=== PATIENT | male | born 1955 | race Caucasian/White ===

== ENCOUNTER → 2023-08-07 07:01 | Outpatient (REF) | payer MEDICARE, OTHER, SELFPAY ==
[2023-08-07 08:01] LABS: % Basophils 1.3 % (0-2); % Eosinophils 2.8 % (0-6); % Immature Granulocytes 0.3 % (0-0.5); % Lymphocytes 21.6 % (20.5-51.1); % Monocytes 11.6 % (1.7-9.3); % Neutrophils 62.4 % (42.2-75.2); Absolute Basophils 0.1 10^3/uL (0-0.2); Absolute Eosinophils 0.1 10^3/uL (0-0.7); Absolute Lymphocytes 0.8 10^3/uL (1.2-3.4); Absolute Monocytes 0.5 10^3/uL (0.1-0.6); Absolute Neutrophils 2.4 10^3/uL (1.4-6.5); Hematocrit 36.6 % (39.0-52.0); Hemoglobin 13.1 g/dL (13.0-18.0); Mean Corp Hgb Conc. 35.8 g/dL (33.0-37.0); Mean Corpuscular Hgb 35.3 pg (27.0-31.0); Mean Corpuscular Volume 98.7 fL (80.0-94.0); Mean Platelet Volume 9.3 fL (7.4-10.4); Nucleated Red Blood Cells % 0 % (-); Platelet Count 163 10^3/uL (130-400); Red Blood Cell Count 3.71 10^6/uL (4.70-6.10); Red Cell Dist. Width 13.5 % (11.5-14.5); White Blood Cell Count 3.9 10^3/uL (4.8-10.8)
[2023-08-07 08:29] LABS: ALT (SGPT) 34 U/L (0-50); AST (SGOT) 32 U/L (17-59); Albumin 3.9 g/dl (3.5-5.0); Alkaline Phosphatase 95 U/L (38-126); Blood Urea Nitrogen 25 mg/dl (9-20); Calcium 9.3 mg/dl (8.4-10.2); Carbon Dioxide 29 mmol/L (22-30); Chloride 101 mmol/L (98-107); Glucose 91 mg/dl (70-99); Potassium 3.9 mmol/L (3.5-5.1); Sodium 139 mmol/L (135-145); Total Protein 6.8 g/dl (6.3-8.2); eGFR > 60.00
[2023-08-08 21:30] LABS: Beta-2-Microglobulin 2.4 mg/L (<=3.0)
[2023-08-11 01:45] LABS: Albumin 4.29 g/dL (3.75-5.01); Alpha 1 Globulin 0.27 g/dL (0.19-0.46); Alpha 2 Globulin 0.49 g/dL (0.48-1.05); Free Kappa Light Chains,Quant 14.98 mg/L (3.30-19.40); Free Lambda Light Chains,Quant 18.15 mg/L (5.71-26.30); IgA 66 mg/dL (68-408); IgG 926 mg/dL (768-1632); IgM 41 mg/dL (35-263); Immunofixation Electrophoresis IFE Done; Kappa/Lambda Fr Light Ratio 0.83 (0.26-1.65); Monoclonal Protein 0.48 g/dL (<=0.00); Total Protein-Electrophoresis 6.5 g/dL (6.3-8.2)
== END ==
LOC: REG 07:01
PROVIDERS: ATTENDING PHYSICIAN Internal Medicine Hematology & Oncology; FAMILY PHYSICIAN Internal Medicine
DX: C79.51 Secondary malignant neoplasm of bone (principal); C90.00 Multiple myeloma not having achieved remission; Q78.2 Osteopetrosis
CPT/HCPCS: 36415; 80053; 82232; 82784; 83521; 84155; 84165; 85025; 86334

== ENCOUNTER → 2023-09-08 06:34 | Outpatient (REF) | payer MEDICARE, OTHER, SELFPAY ==
[2023-09-08 07:11] LABS: % Eosinophils 7.8 % (0-6); % Lymphocytes 29.2 % (20.5-51.1); % Monocytes 11.5 % (1.7-9.3); % Neutrophils 49.5 % (42.2-75.2); Absolute Basophils 0.1 10^3/uL (0-0.2); Absolute Eosinophils 0.2 10^3/uL (0-0.7); Absolute Lymphocytes 0.9 10^3/uL (1.2-3.4); Absolute Monocytes 0.3 10^3/uL (0.1-0.6); Absolute Neutrophils 1.5 10^3/uL (1.4-6.5); Hematocrit 37.6 % (39.0-52.0); Mean Corp Hgb Conc. 34.6 g/dL (33.0-37.0); Mean Corpuscular Volume 98.4 fL (80.0-94.0); Mean Platelet Volume 9.1 fL (7.4-10.4); Nucleated Red Blood Cells % 0 % (-); Platelet Count 162 10^3/uL (130-400); Red Blood Cell Count 3.82 10^6/uL (4.70-6.10); Red Cell Dist. Width 13.4 % (11.5-14.5)
[2023-09-08 07:21] LABS: ALT (SGPT) 39 U/L (0-50); AST (SGOT) 34 U/L (17-59); Albumin 4.3 g/dl (3.5-5.0); Alkaline Phosphatase 98 U/L (38-126); Blood Urea Nitrogen 18 mg/dl (9-20); Calcium 9.2 mg/dl (8.4-10.2); Carbon Dioxide 32 mmol/L (22-30); Chloride 102 mmol/L (98-107); Glucose 94 mg/dl (70-99); Potassium 3.7 mmol/L (3.5-5.1); Sodium 138 mmol/L (135-145); Total Protein 6.7 g/dl (6.3-8.2); eGFR > 60.00
[2023-09-10 23:40] LABS: Albumin 4.26 g/dL (3.75-5.01); Alpha 2 Globulin 0.52 g/dL (0.48-1.05); Free Kappa Light Chains,Quant 14.39 mg/L (3.30-19.40); Free Lambda Light Chains,Quant 14.01 mg/L (5.71-26.30); IgA 68 mg/dL (68-408); IgG 1037 mg/dL (768-1632); IgM 46 mg/dL (35-263); Immunofixation Electrophoresis IFE Done; Kappa/Lambda Fr Light Ratio 1.03 (0.26-1.65); Monoclonal Protein 0.54 g/dL (<=0.00); Total Protein-Electrophoresis 6.7 g/dL (6.3-8.2)
== END ==
LOC: RAD 06:34
PROVIDERS: ATTENDING PHYSICIAN Internal Medicine Hematology & Oncology; FAMILY PHYSICIAN Internal Medicine
DX: C79.51 Secondary malignant neoplasm of bone (principal); C90.00 Multiple myeloma not having achieved remission; Q78.2 Osteopetrosis
CPT/HCPCS: 36415; 71111; 80053; 82784; 83521; 84155; 84165; 85025; 86334

== ENCOUNTER → 2023-11-20 06:44 | Outpatient (REF) | payer MEDICARE, OTHER, SELFPAY ==
[2023-11-20 07:59] LABS: % Basophils 2.4 % (0-2); % Eosinophils 4.5 % (0-6); % Immature Granulocytes 0.3 % (0-0.5); % Lymphocytes 25.6 % (20.5-51.1); % Monocytes 6.6 % (1.7-9.3); % Neutrophils 60.6 % (42.2-75.2); Absolute Basophils 0.1 10^3/uL (0-0.2); Absolute Eosinophils 0.2 10^3/uL (0-0.7); Absolute Lymphocytes 0.9 10^3/uL (1.2-3.4); Absolute Monocytes 0.2 10^3/uL (0.1-0.6); Hematocrit 35.1 % (39.0-52.0); Mean Corp Hgb Conc. 34.2 g/dL (33.0-37.0); Mean Corpuscular Hgb 34.2 pg (27.0-31.0); Mean Platelet Volume 9.2 fL (7.4-10.4); Nucleated Red Blood Cells % 0 % (-); Platelet Count 181 10^3/uL (130-400); Red Blood Cell Count 3.51 10^6/uL (4.70-6.10); Red Cell Dist. Width 14.2 % (11.5-14.5); White Blood Cell Count 3.3 10^3/uL (4.8-10.8)
[2023-11-20 08:18] LABS: ALT (SGPT) 22 U/L (0-50); AST (SGOT) 30 U/L (17-59); Alkaline Phosphatase 109 U/L (38-126); Blood Urea Nitrogen 23 mg/dl (9-20); Calcium 9.2 mg/dl (8.4-10.2); Carbon Dioxide 28 mmol/L (22-30); Chloride 107 mmol/L (98-107); Glucose 97 mg/dl (70-99); Sodium 140 mmol/L (135-145); Total Bilirubin 0.9 mg/dl (0.2-1.3); Total Protein 6.6 g/dl (6.3-8.2); eGFR > 60.00
[2023-11-23 06:15] LABS: Albumin 4.03 g/dL (3.75-5.01); Alpha 1 Globulin 0.32 g/dL (0.19-0.46); Alpha 2 Globulin 0.43 g/dL (0.48-1.05); Free Kappa Light Chains,Quant 11.94 mg/L (3.30-19.40); IgA 59 mg/dL (68-408); IgG 1038 mg/dL (768-1632); IgM 45 mg/dL (35-263); Immunofixation Electrophoresis IFE Done; Kappa/Lambda Fr Light Ratio 0.92 (0.26-1.65); Monoclonal Protein 0.68 g/dL (<=0.00); Total Protein-Electrophoresis 6.4 g/dL (6.3-8.2)
== END ==
LOC: REG 06:44
PROVIDERS: ATTENDING PHYSICIAN Internal Medicine Hematology & Oncology; FAMILY PHYSICIAN Internal Medicine Medical Oncology; REFERRING PHYSICIAN Internal Medicine
DX: C79.51 Secondary malignant neoplasm of bone (principal); C90.00 Multiple myeloma not having achieved remission; Q78.2 Osteopetrosis
CPT/HCPCS: 36415; 80053; 82784; 83521; 84155; 84165; 85025; 86334

== ENCOUNTER → 2023-11-30 09:09 | Outpatient (REF) | payer MEDICARE, OTHER, SELFPAY ==
[2023-11-30 10:38] LABS: NT-proBNP 430 pg/ml; Troponin I < 0.012 ng/ml
[2023-12-02 09:38] LABS: 24 Hour Urine Total Volume Random mL; Urine Collection Length Random hr; Urine Free Kappa Light Chains 44.24 mg/L (0.00-32.90); Urine Free Lambda Light Chains 8.81 mg/L (0.00-3.79)
[2023-12-02 22:48] LABS: Alpha 1 Globulin 0.29 g/dL (0.19-0.46); Alpha 2 Globulin 0.44 g/dL (0.48-1.05); Free Lambda Light Chains,Quant 12.88 mg/L (5.71-26.30); IgA 54 mg/dL (68-408); IgG 1050 mg/dL (768-1632); IgM 38 mg/dL (35-263); Immunofixation Electrophoresis IFE Done; Kappa/Lambda Fr Light Ratio 0.95 (0.26-1.65); Monoclonal Protein 0.69 g/dL (<=0.00); Total Protein-Electrophoresis 6.6 g/dL (6.3-8.2)
== END ==
LOC: REG 09:09
PROVIDERS: ATTENDING PHYSICIAN Internal Medicine Hematology & Oncology; FAMILY PHYSICIAN Internal Medicine; REFERRING PHYSICIAN Internal Medicine Medical Oncology
DX: C79.51 Secondary malignant neoplasm of bone (principal); C90.00 Multiple myeloma not having achieved remission; Q78.2 Osteopetrosis
CPT/HCPCS: 36415; 82784; 83521; 83880; 84155; 84156; 84165; 84484; 86334; 86335

== ENCOUNTER → 2023-12-28 06:48 | Outpatient (REF) | payer MEDICARE, OTHER, SELFPAY | LOC: RCS 06:48 | PROVIDERS: ATTENDING PHYSICIAN Internal Medicine Hematology & Oncology; FAMILY PHYSICIAN Internal Medicine | DX: C79.51 Secondary malignant neoplasm of bone (principal); C90.00 Multiple myeloma not having achieved remission; Q78.2 Osteopetrosis | CPT/HCPCS: 93306; 93356 ==

== ENCOUNTER 2024-01-31 06:33 | Day surgery (SDC) | payer MEDICARE, OTHER, SELFPAY | END 2024-01-31 09:14 | disposition home or self-care (01) | LOC: CATH 06:33 | PROVIDERS: ATTENDING PHYSICIAN Internal Medicine Cardiovascular Disease; FAMILY PHYSICIAN Internal Medicine | DX: I08.1 Rheumatic disorders of both mitral and tricuspid valves (principal); Z80.0 Family history of malignant neoplasm of digestive organs; Z79.82 Long term (current) use of aspirin | CPT/HCPCS: 93312; 93320; 93325 ==

== ENCOUNTER → 2024-02-05 06:47 | Outpatient (REF) | payer MEDICARE, OTHER, SELFPAY ==
[2024-02-05 08:18] LABS: % Basophils 3.5 % (0-2); % Eosinophils 4.1 % (0-6); % Immature Granulocytes 0.3 % (0-0.5); % Lymphocytes 26.1 % (20.5-51.1); % Monocytes 14.3 % (1.7-9.3); % Neutrophils 51.7 % (42.2-75.2); Absolute Basophils 0.1 10^3/uL (0-0.2); Absolute Eosinophils 0.1 10^3/uL (0-0.7); Absolute Lymphocytes 0.8 10^3/uL (1.2-3.4); Absolute Monocytes 0.5 10^3/uL (0.1-0.6); Absolute Neutrophils 1.6 10^3/uL (1.4-6.5); Hematocrit 33.8 % (39.0-52.0); Mean Corp Hgb Conc. 35.5 g/dL (33.0-37.0); Mean Corpuscular Hgb 34.3 pg (27.0-31.0); Mean Corpuscular Volume 96.6 fL (80.0-94.0); Mean Platelet Volume 8.7 fL (7.4-10.4); Nucleated Red Blood Cells % 0 % (-); Platelet Count 162 10^3/uL (130-400); White Blood Cell Count 3.1 10^3/uL (4.8-10.8)
[2024-02-05 08:45] LABS: ALT (SGPT) 33 U/L (0-50); AST (SGOT) 34 U/L (17-59); Albumin 4.2 g/dl (3.5-5.0); Alkaline Phosphatase 99 U/L (38-126); Blood Urea Nitrogen 19 mg/dl (9-20); Calcium 9.8 mg/dl (8.4-10.2); Carbon Dioxide 31 mmol/L (22-30); Chloride 105 mmol/L (98-107); Glucose 95 mg/dl (70-99); Potassium 4.1 mmol/L (3.5-5.1); Sodium 143 mmol/L (135-145); Total Bilirubin 0.9 mg/dl (0.2-1.3); Total Protein 6.7 g/dl (6.3-8.2); eGFR > 60.00
[2024-02-07 14:27] LABS: Alpha 1 Globulin 0.26 g/dL (0.19-0.46); Alpha 2 Globulin 0.42 g/dL (0.48-1.05); Free Kappa Light Chains,Quant 9.82 mg/L (3.30-19.40); Free Lambda Light Chains,Quant 9.01 mg/L (5.71-26.30); IgA 49 mg/dL (68-408); IgG 1120 mg/dL (768-1632); IgM 54 mg/dL (35-263); Immunofixation Electrophoresis IFE Done; Kappa/Lambda Fr Light Ratio 1.09 (0.26-1.65); Monoclonal Protein 0.76 g/dL (<=0.00); Total Protein-Electrophoresis 6.5 g/dL (6.3-8.2)
== END ==
LOC: REG 06:47
PROVIDERS: ATTENDING PHYSICIAN Internal Medicine Hematology & Oncology; FAMILY PHYSICIAN Internal Medicine; REFERRING PHYSICIAN Internal Medicine Medical Oncology
DX: C79.51 Secondary malignant neoplasm of bone (principal); C90.00 Multiple myeloma not having achieved remission; Q78.2 Osteopetrosis
CPT/HCPCS: 36415; 80053; 82784; 83521; 84155; 84165; 85025; 86334

== ENCOUNTER 2024-03-13 09:48 | Emergency (ER) | payer MEDICARE, OTHER, SELFPAY ==
[2024-03-13 09:54] VITALS: BMI 20.7
[2024-03-13 09:55] VITALS: BP 148/90
--- NOTE | 2024-03-13 10:18 | ED.GENMED ---
History of Present Illness
General
Chief Complaint: Insect Sting
Time Seen by Provider: 03/13/24 09:51
History of Present Illness
History of Present Illness:
68-year-old male with history of multiple myeloma presenting for concern of anaphylaxis. Patient reports prior to arrival he was feeding his animals at his house and struck a hornets nest, was stung in his right side of his neck and left side of
his abdomen. He suddenly started to have diffuse swelling and burning in his body with dyspnea. Also felt that his upper lip was getting swollen. Denies any allergies in the past. He called medics, was administered epinephrine around 9 AM. Also
received Benadryl. After receiving the medications, reports improvement of his symptoms. Did have some rigors and route, which have also improved. Denies present chest pain or difficulty breathing. Denies additional acute medical complaints
Phy Exam
Physical Exam
Physical Exam:
General: Well-appearing, no clinical signs of dehydration, nontoxic and in no acute distress
HEENT: protecting airway, no oropharyngeal edema, no swelling to the lips
Neck: appears supple
CV: Normal heart rate, regular rhythm
Resp: No accessory muscle use, no increased work of breathing, lungs clear to auscultation bilaterally
Abd: No distention, small area of induration left lower quadrant region where patient was stung
Extremities: No deformities, no swelling
Neuro: alert, no focal neurologic deficit
: deferred
Rectal: deferred
Psych: Normal affect
Skin: Intact
Course
Orders/Labs/Results
Orders:
Orders
03/13/24 10:14
0.9% Sodium Chloride 1000 ml [Nss] 1,000 ml IV BOLUS
Dexamethasone Sod Phosphate [Decadron] 10 mg IV NOW STA
Vital Signs
Initial and Last Documented VS:
Initial Vital Signs
Temp Pulse Resp BP Pulse Ox
97.5 F 81 18 148/90 100
03/13/24 09:55 03/13/24 09:55 03/13/24 09:55 03/13/24 09:55 03/13/24 09:55
Last Documented Vital Signs
Temp Pulse Resp BP Pulse Ox
97.5 F 73 15 135/81 98
03/13/24 09:55 03/13/24 11:45 03/13/24 11:45 03/13/24 11:00 03/13/24 11:45
MDM/Problems Addressed
MDM/Problems Addressed:
68-year-old male with history of multiple myeloma presenting to the emergency department for concern of anaphylaxis to a hornet sting. Vital signs on arrival are normal.
On exam, patient is resting comfortably, no acute distress or discomfort. Patient is presently protecting airway, no wheezing, no oropharyngeal swelling, no systemic rash, no present GI symptoms. Preceding symptoms appear consistent with acute
anaphylaxis, already received IM epi and Benadryl. Will administer Decadron and continue to closely monitor for several hours to ensure no rebound reaction.
12:10 - Patient remains stable after period of observation. Feel stable for discharge. Will prescribe EpiPen. Return precautions discussed and patient verbalized understanding
*Critical Care Note
Total Time (30-74mins, 75-104mins- exclusive of procedures): Not Applicable
ED Attending Note
-
Portions of this chart may have been created with voice recognition software.� Occasional wrong word or��sound alike� substitutions may have occurred due to the inherent limitations of voice recognition software.
Discharge Plan
Departure
Prescriptions:
No Action
aspirin 81 mg Tablet
81 mg PO DAILY
lenalidomide [Revlimid] 10 mg Capsule
10 mg PO DAILY
Referrals:
Rohini Dillon MD [Family Provider] -
Interventions
Interventions:
*Risk Screen - Suicide Last Done: 03/13/24 09:55
*General Assessment Last Done: 03/13/24 09:55
*Neglect/Abuse Screening Last Done: 03/13/24 09:55
ED- Fall Risk Assessment Last Done: 03/13/24 09:55
*ED COVID-19 Vaccine History Last Done: 03/13/24 09:55
ED-Skin Assessment Last Done: 03/13/24 09:55
ED- Pulmonary Assessment Last Done: 03/13/24 09:55
Discharge Date and Time
Print Language: MOROCCAN
[2024-03-13] MEDS: NSS 1000 IV (10:33)
[2024-03-13] MEDS: DECADRON 10 MG IV (10:34)
[2024-03-13 11:00] VITALS: BP 135/81
[2024-03-13 12:06] VITALS: BP 139/82
== END 2024-03-13 12:38 | disposition home or self-care (01) ==
LOC: EMR 09:48
PROVIDERS: EMERGENCY PHYSICIAN Student in an Organized Health Care Education/Training Program; FAMILY PHYSICIAN Internal Medicine
DX: T63.451A Toxic effect of venom of hornets, accidental (unintentional), initial encounter (principal); T78.2XXA Anaphylactic shock, unspecified, initial encounter; R06.00 Dyspnea, unspecified; R22.9 Localized swelling, mass and lump, unspecified; R20.8 Other disturbances of skin sensation; R68.89 Other general symptoms and signs; Y93.89 Activity, other specified; Y92.009 Unspecified place in unspecified non-institutional (private) residence as the place of occurrence of the external cause; C90.00 Multiple myeloma not having achieved remission
CPT/HCPCS: 99284; 96374; 96361

== ENCOUNTER 2024-03-18 06:02 | Day surgery (SDC) | payer MEDICARE, OTHER, SELFPAY ==
[2024-03-18] VITALS (15 sets, daily range): BP systolic 107–146; BP diastolic 72–88; BMI 20.7
[2024-03-18 06:47] LABS: Hematocrit 34.9 % (39.0-52.0); Hemoglobin 12.4 g/dL (13.0-18.0); Mean Corp Hgb Conc. 35.5 g/dL (33.0-37.0); Mean Corpuscular Hgb 35.2 pg (27.0-31.0); Mean Corpuscular Volume 99.1 fL (80.0-94.0); Mean Platelet Volume 8.9 fL (7.4-10.4); Platelet Count 147 10^3/uL (130-400); Red Blood Cell Count 3.52 10^6/uL (4.70-6.10); White Blood Cell Count 3.8 10^3/uL (4.8-10.8)
[2024-03-18] MEDS: NSS 207 ML IV (07:01)
[2024-03-18 07:06] LABS: ALT (SGPT) 56 U/L (0-50); AST (SGOT) 40 U/L (17-59); Albumin 4.3 g/dl (3.5-5.0); Alkaline Phosphatase 98 U/L (38-126); Blood Urea Nitrogen 21 mg/dl (9-20); Calcium 9.1 mg/dl (8.4-10.2); Carbon Dioxide 29 mmol/L (22-30); Chloride 105 mmol/L (98-107); Estimated Creatinine Clearance 70 ml/min; Glucose 91 mg/dl (70-99); Potassium 3.8 mmol/L (3.5-5.1); Sodium 142 mmol/L (135-145); Total Bilirubin 1.1 mg/dl (0.2-1.3); Total Protein 6.9 g/dl (6.3-8.2); eGFR > 60.00
[2024-03-18] MEDS: LOW STRENGTH ASPIRIN 81 MG PO (07:22)
[2024-03-18 08:10] LABS: ACT-LR - POC 245 Seconds (116-155)
[2024-03-18] MEDS: NSS 1000 IV (08:30)
--- NOTE | 2024-03-18 08:34 | PTCARENOTE ---
Dr Lance at pt bedside speaking to pt and pt's .
--- NOTE | 2024-03-18 08:43 | ITS.CL.CATH ---
Director Global Intelligence - Catheterization
Cardiac Catheterization
Procedure Report:
LEFT HEART CATHETERIZATION
Date of Procedure: March 18, 2024
Referring: Dr. Checo Eng, Dr. Aldo Ernst
PROCEDURES:
1. Left heart catheterization with coronary angiography
INDICATION: Severe mitral regurgitation
ACCESS: Right radial artery, 5 Telugu sheath
HEMODYNAMICS : (mmHg)
AO (s/d) : 119/70, 94
LV: 137/13
LVEDP: 25
CORONARY FINDINGS
DOMINANCE: Right
LEFT MAIN: Normal
LEFT ANTERIOR DESCENDING: Normal
CIRCUMFLEX: Normal
RIGHT CORONARY ARTERY: Normal
RADIATION SUMMARY: Fluoro Time (min): 3.1, Dose (mGy): 122, DAP (Gy.cm2) : 8.9
Closure Device: TR band
CONCLUSIONS
1. Normal coronary arteries
2. Known severe mitral regurgitation
Copy to: Dr. Aldo Ernst, Dr. Checo Eng
== END 2024-03-18 11:07 | disposition home or self-care (01) ==
LOC: CATH 06:02
PROVIDERS: ATTENDING PHYSICIAN Internal Medicine Interventional Cardiology; FAMILY PHYSICIAN Internal Medicine; OTHER PHYSICIAN Internal Medicine Cardiovascular Disease
DX: I34.0 Nonrheumatic mitral (valve) insufficiency (principal); R00.2 Palpitations; C90.00 Multiple myeloma not having achieved remission; Z79.82 Long term (current) use of aspirin
CPT/HCPCS: 80053; 85027; 85347; 93005; 93458; C1894; Q9967

== ENCOUNTER 2024-04-23 05:01 | Inpatient (IN) | payer MEDICARE, OTHER, SELFPAY ==
[2024-04-04 08:22] VITALS: BMI 20.7
[2024-04-04 08:53] LABS: % Basophils 2.4 % (0-2); % Eosinophils 5.1 % (0-6); % Immature Granulocytes 0.8 % (0-0.5); % Lymphocytes 31.5 % (20.5-51.1); % Monocytes 12.2 % (1.7-9.3); Absolute Basophils 0.1 10^3/uL (0-0.2); Absolute Eosinophils 0.1 10^3/uL (0-0.7); Absolute Lymphocytes 0.8 10^3/uL (1.2-3.4); Absolute Monocytes 0.3 10^3/uL (0.1-0.6); Absolute Neutrophils 1.2 10^3/uL (1.4-6.5); Hematocrit 32.3 % (39.0-52.0); Hemoglobin 11.8 g/dL (13.0-18.0); Mean Corp Hgb Conc. 36.5 g/dL (33.0-37.0); Mean Corpuscular Hgb 35.4 pg (27.0-31.0); Nucleated Red Blood Cells % 0 % (-); Platelet Count 153 10^3/uL (130-400); Red Blood Cell Count 3.33 10^6/uL (4.70-6.10); Red Cell Dist. Width 14.3 % (11.5-14.5); White Blood Cell Count 2.5 10^3/uL (4.8-10.8)
[2024-04-04 09:03] LABS: INR 1.01; PT 13.3 Sec (11.4-14.6)
[2024-04-04 09:04] LABS: APTT 30.4 Sec (23.4-35.0)
[2024-04-04 09:07] LABS: Urine Albumin Negative (Neg - Trace); Urine Bilirubin Negative (Negative); Urine Character Clear (Clear); Urine Color Yellow; Urine Glucose Negative (Negative); Urine Ketone Negative (Negative); Urine Leukocyte Negative (Negative); Urine Nitrite Negative (Negative); Urine Occult Blood Negative (Negative); Urine Specific Gravity 1.015 (<1.030); Urine Urobilinogen Negative (Neg - 1+); Urine pH 6.5 (5.0-9.0)
--- NOTE | 2024-04-04 09:58 | CM ---
Met with Dr. Almanza in [facility]. He states prior to admission he resides with the spouse in a two story home without any steps to enter. He states he has a full flight of steps to get to bedroom/full bathroom. He states he has a powder room on the
first floor. He states prior to admission he was independent with ambulation and adls. He states he does not have any DME in the home. He states he has a prescription plan. He states his spouse will be home to assist in his care if needed. He
states his three adult children will also be available to assist in care if needed. The discharge plan is to return home with his spouse and a home visit by the Transitional Care Nurse when medically stable.
We reviewed pre-op and post-op routines. We reviewed the shower instructions. We also reviewed restrictions including lifting and driving restrictions. We discussed a home visit by the Transitional Care Nurse. He is agreeable to a home visit. The
plan is for mitral valve repair on Tuesday, April 23, 2024.
[2024-04-04 10:24] LABS: Glycohemoglobin (HgbA1c) 4.6 % (4.0-5.6)
[2024-04-04 11:42] LABS: ALT (SGPT) 53 U/L (0-50); AST (SGOT) 43 U/L (17-59); Albumin 4.4 g/dl (3.5-5.0); Alkaline Phosphatase 107 U/L (38-126); Blood Urea Nitrogen 23 mg/dl (9-20); Calcium 9.1 mg/dl (8.4-10.2); Carbon Dioxide 28 mmol/L (22-30); Chloride 104 mmol/L (98-107); Direct Bilirubin 0.2 mg/dl (0.0-0.4); Estimated Creatinine Clearance 78 ml/min; Glucose 86 mg/dl (70-99); Potassium 3.7 mmol/L (3.5-5.1); Sodium 144 mmol/L (135-145); Total Protein 7.1 g/dl (6.3-8.2); eGFR > 60.00
[2024-04-23] VITALS (10 sets, daily range): BP systolic 84–152; BP diastolic 51–94; BMI 20.2
--- NOTE | 2024-04-23 00:50 | W.PN.CT ---
Assessment / Plan
-
Assessment:
S/P Right mini thoracotomy with right femoral artery and vein cannulation under ROSY guidance/Radical mitral valve repair (38 mm band annuloplasty, 5 pairs of CV 4 [place]-Michael with 3 pairs going to the posterior leaflet in 2 pairs to the anterior
leaflet, triangular resection of the flail segment and primary closure)/Pneumolysis of intrathoracic adhesions of right lower lung to the anterior and diaphragmatic surface, by Dr. Enrst, 04/23/24, pod#1
-Severe mitral valve degeneration, myxomatous and degenerative mitral valve disease, type II pathology with flail/torn cords at the P2 P1 interface resulting in severe insufficiency
-LVEF 65%
-Multiple myeloma (with neutropenia/anemia) S/P stem cell transplant 2016, on Revlimid
-Fatigue
-Ventricular ectopy/trigeminy
-Palpitations
-Neuropathy
-Anaphylaxis to bee venom
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
-Acute postop v-fib arrest S/P CPR (chest compressions, chock x 3, and meds, coded x ~10 min before achieving ROSC)
-Acute postop frequent PVC's
-Acute postop 2:1 AV block
-Acute postop cardiogenic shock (CI 1.38), S/P dobutamine gtt
-Acute postop bradycardia, likely d/t Amiodarone gtt and bolus
-Acute postop blood loss/Anemia on chronic anemia (stable without PRBCs)
-Acute postop atelectasis
-Acute postop hypovolemia with subsequent hypervolemia
Plan:
-No major issues overnight. Hemodynamically and neurologically intact
-Pt was initially extubated introap but required reintubation during code 9 @ CVICU for v-fib arrest. Successfully extubated @ 1930 on 04/23/24
-Amiodarone gtt d/c'd last night d/t bradycardia in the 30's. Currently on Dobutamine gtt @ 1 mg/kg/min and insulin gtt per protocol. Levophed gtt weaned off following initiation of dobutamine
-Last CI , MVO2 U/O since OR mL
-Monitor chest tube drainage: R pleural/med
-Cont. current meds (ASA, dobutamine gtt
-D/C swan and a-line when able to wean of Levophed
-D/C'd burns catheter this AM @ 0600
-Tele phase once of insulin gtt today
-Maintain cordis
-Maintain temporary PW (will pull before d/c home)
-Encourage use of IS
-Wean off of O2 as tolerated
-OOB into chair/Ambulate
-Repeat echo in 1-2 days
Subjective
-
Date of Service: April 23, 2024
Objective Data
-
Lab Results
04/04/24 08:34
04/04/24 08:34
PT 13.3 Sec (11.4-14.6) 04/04/24 08:34
INR 1.01 04/04/24 08:34
APTT 30.4 Sec (23.4-35.0) 04/04/24 08:34
[2024-04-23] MEDS: PROTONIX 40 MG PO (05:28)
[2024-04-23] MEDS: LOPRESSOR 25 MG PO (05:28)
[2024-04-23] MEDS: BACTROBAN 2% OINTMENT 1 APPLIC NASAL ×2 (05:28→20:00)
[2024-04-23] MEDS: MAGNESIUM OXIDE 500 MG PO (05:28)
--- NOTE | 2024-04-23 05:37 | PTCARENOTE ---
pt admitted to 6. pt confirmed NPO since midnight and 2 CHG showers @ home, pt prepped and clipped, labs obtained, CHG bath given, CTPA Ed obtaining H&P.
--- NOTE | 2024-04-23 06:00 | PTCARENOTE ---
pt sent to CVOR with wedding ring that doesn't come off, CVOR notified.
--- NOTE | 2024-04-23 06:11 | W.CVOR.SURPR ---
CVOR Surgeon Immed Pre Op
-
I have examined this patient prior to performance of the scheduled procedure.
The patient's condition is unchanged from the time of the dictated/written History and
Physical and the patient is able to undergo the scheduled procedure.
MV repair
[2024-04-23 07:55] LABS: Urine Albumin Negative (Neg - Trace); Urine Bilirubin Negative (Negative); Urine Character Slightly Cloudy (Clear); Urine Color Straw; Urine Glucose Negative (Negative); Urine Ketone Negative (Negative); Urine Leukocyte Negative (Negative); Urine Nitrite Negative (Negative); Urine Occult Blood Negative (Negative); Urine Urobilinogen Negative (Neg - 1+)
[2024-04-23 07:58] LABS: ACT+ - POC 107 Seconds (82-134)
[2024-04-23 08:16] LABS: B.E. - POC -1.2 mmol/L; Glucose - POC 116 mg/dl (70-99); HCO3 - POC 23 mmol/L (21-28); Hematocrit - POC 31 % PCV (42-52); Hemodilution- POC Yes; Hemoglobin Calculated - POC 10.4; Ionized Calcium - POC 1.18 mmol/L (1.15-1.33); O2 Saturation %Calculated-POC 99.6 % (94-98); PCO2 - POC 36 mmHg (35-48); PO2 - POC 179 mmHg (83-108); POC Comment PRE; Potassium - POC 3.2 mmol/L (3.5-5.1); Sodium - POC 143 mmol/L (136-145); pH - POC 7.42 (7.35-7.45)
[2024-04-23 08:53] LABS: ACT+ - POC 792 Seconds (82-134)
--- NOTE | 2024-04-23 09:10 | CM ---
pt in OR today, cm to follow
[2024-04-23 09:26] LABS: ACT+ - POC 768 Seconds (82-134)
[2024-04-23 09:47] LABS: B.E. - POC 2.2 mmol/L; Glucose - POC 144 mg/dl (70-99); HCO3 - POC 27 mmol/L (21-28); Hematocrit - POC 26 % PCV (42-52); Hemodilution- POC Yes; Hemoglobin Calculated - POC 8.7; Ionized Calcium - POC 1.02 mmol/L (1.15-1.33); O2 Saturation %Calculated-POC 99.9 % (94-98); PCO2 - POC 44 mmHg (35-48); PO2 - POC 328 mmHg (83-108); POC Comment CPB; Potassium - POC 4.8 mmol/L (3.5-5.1); Sodium - POC 141 mmol/L (136-145)
[2024-04-23 10:01] LABS: ACT+ - POC 750 Seconds (82-134)
[2024-04-23 10:01] LABS: B.E. - POC 2.6 mmol/L; Glucose - POC 184 mg/dl (70-99); HCO3 - POC 31 mmol/L (21-28); Hematocrit - POC 27 % PCV (42-52); Hemodilution- POC Yes; Hemoglobin Calculated - POC 9.1; Ionized Calcium - POC 1.13 mmol/L (1.15-1.33); O2 Saturation %Calculated-POC 99.6 % (94-98); PCO2 - POC 68 mmHg (35-48); PO2 - POC 222 mmHg (83-108); POC Comment CPB; Potassium - POC 4.5 mmol/L (3.5-5.1); Sodium - POC 141 mmol/L (136-145); pH - POC 7.26 (7.35-7.45)
[2024-04-23 10:18] LABS: B.E. - POC 1.1 mmol/L; Glucose - POC 179 mg/dl (70-99); HCO3 - POC 26 mmol/L (21-28); Hematocrit - POC 28 % PCV (42-52); Hemodilution- POC Yes; Hemoglobin Calculated - POC 9.6; Ionized Calcium - POC 1.09 mmol/L (1.15-1.33); O2 Saturation %Calculated-POC 99.8 % (94-98); PCO2 - POC 40 mmHg (35-48); PO2 - POC 225 mmHg (83-108); POC Comment CPB; Potassium - POC 4.4 mmol/L (3.5-5.1); Sodium - POC 142 mmol/L (136-145); pH - POC 7.42 (7.35-7.45)
[2024-04-23 10:30] LABS: ACT+ - POC 594 Seconds (82-134)
[2024-04-23 10:44] LABS: B.E. - POC 0.3 mmol/L; Glucose - POC 131 mg/dl (70-99); HCO3 - POC 24 mmol/L (21-28); Hematocrit - POC 28 % PCV (42-52); Hemodilution- POC Yes; Hemoglobin Calculated - POC 9.6; Ionized Calcium - POC 1.07 mmol/L (1.15-1.33); O2 Saturation %Calculated-POC 99.9 % (94-98); PCO2 - POC 32 mmHg (35-48); PO2 - POC 302 mmHg (83-108); POC Comment WARM; Potassium - POC 4.1 mmol/L (3.5-5.1); Sodium - POC 142 mmol/L (136-145); pH - POC 7.48 (7.35-7.45)
[2024-04-23 10:55] LABS: ACT+ - POC 525 Seconds (82-134)
[2024-04-23 11:19] LABS: ACT+ - POC 698 Seconds (82-134)
[2024-04-23 11:20] LABS: B.E. - POC 1.8 mmol/L; Glucose - POC 68 mg/dl (70-99); HCO3 - POC 27 mmol/L (21-28); Hematocrit - POC 27 % PCV (42-52); Hemodilution- POC Yes; Hemoglobin Calculated - POC 9.1; Ionized Calcium - POC 1.44 mmol/L (1.15-1.33); O2 Saturation %Calculated-POC 99.9 % (94-98); PCO2 - POC 47 mmHg (35-48); PO2 - POC 270 mmHg (83-108); POC Comment CPB; Potassium - POC 4.3 mmol/L (3.5-5.1); Sodium - POC 145 mmol/L (136-145); pH - POC 7.38 (7.35-7.45)
[2024-04-23] MEDS: ANCEF 10 IV ×2 (11:53)
[2024-04-23 11:58] LABS: B.E. - POC 0.8 mmol/L; Glucose - POC 80 mg/dl (70-99); HCO3 - POC 27 mmol/L (21-28); Hematocrit - POC 25 % PCV (42-52); Hemodilution- POC Yes; Hemoglobin Calculated - POC 8.6; Ionized Calcium - POC 1.35 mmol/L (1.15-1.33); O2 Saturation %Calculated-POC 99.9 % (94-98); PCO2 - POC 47 mmHg (35-48); PO2 - POC 315 mmHg (83-108); POC Comment CPB; Potassium - POC 4.4 mmol/L (3.5-5.1); Sodium - POC 143 mmol/L (136-145); pH - POC 7.36 (7.35-7.45)
[2024-04-23 12:09] LABS: ACT+ - POC 104 Seconds (82-134)
--- NOTE | 2024-04-23 12:24 | W.PN.CT.SURG ---
CT Surgery Operative Note
-
CARDIAC SURGERY OPERATIVE REPORT
Preoperative Diagnosis: Myxomatous mitral valve degeneration with flail/torn cords of the posterior leaflet at the P2 P1 scallop with severe insufficiency
Postoperative Diagnosis: Same
Procedure(s) Performed:
1. Right mini thoracotomy with right femoral artery and vein cannulation under ROSY guidance
2. Radical mitral valve repair (38 mm band annuloplasty, 5 pairs of CV 4 [place]-Michael with 3 pairs going to the posterior leaflet in 2 pairs to the anterior leaflet, triangular resection of the flail segment and primary closure)
3. Placement temporary ventricular pacing wires
4. Trans esophageal echocardiography
5. Pneumolysis of intrathoracic adhesions of right lower lung to the anterior and diaphragmatic surface
6. Preoperative serratus block by anesthesia under ultrasound guidance
Date of Surgery: 04/23/2024
Comorbidities:
1. Severe mitral valve degeneration, myxomatous and degenerative mitral valve disease, type II pathology with flail/torn cords at the P2 P1 interface resulting in severe insufficiency
2. Multiple myeloma status post stem cell transplant 2015
3. Neuropathy
4. Benign ventricular ectopy, trigeminy
Attending Surgeon: Aldo Ernst MD, MS
Assistants: Aldo Samuels PA-C (present and necessary for retraction, suctioning, exposure, suture management, wound closure, etc. under my direction)
Anesthesiology: Jean-Paul Delgadillo MD and Kathy Campoverde CRNA
Scrub and Circulating RNs: Yaima Duque, CALEB, Michael Guzman RN
Resource Program Teacher: Lewis Schuster CCP
Anesthesia: GETA
EBL: per perfusion records
Products: None
CPB Time: 180 minutes
Aortic Cross Clamp Time: 136 minutes
Indication(s) for Procedures: This is a 68-year-old male with myxomatous degeneration of the mitral valve with a flail segment of the posterior leaflet resulting in severe insufficiency that was eccentric directed anteriorly. He has been
experiencing more symptoms in the form of fatigue, less stamina and more tachycardia with exertion in comparison to previously 1 year ago, he met stage D symptomatology and class I indication for surgical intervention..
Mitral Valve Description: Very long anterior and posterior leaflets, flail segment with multiple torn cords at the P2 free margin and a large cleft between P1 and P2, severely dilated annulus. Thickened anterior and posterior leaflets.
Implants:
1. 38 mm Hou physio flex angioplasty band, SN [id number]
2. 2 times Chord-X system - used 5 pairs of CV4 goretex sutures
3. Multiple 5-0 prolenes
Specimen:
1. Posterior leaflet, torn chords and part of P2
Findings: His left ventricular ejection fraction preoperatively 60 to 65% with no significant regional wall motion abnormalities. Following surgery his EF remained the same at 60 to 65%. His mitral valve fit the type II pathology with a flail
segment with multiple torn cords at the P2 into P1 free margin. He had a dilated annulus with very long anterior and posterior leaflets. I performed a triangular resection of the P2 segment with multiple torn cords and then reapproximated the P2
scallop to the P1 segment in an imbricating fashion. This was done with multiple interrupted 5-0 [id number]. I initially placed a single CV 4 [place]-Michael to the anterior lateral and 1 to the posterior papillary muscle heads. I placed a 38 mm
band annuloplasty secured in place with 12 nonpledgeted 2 Ethibond sutures with core knots. After adjusting the [place]-Michael length to manipulate the posterior leaflet height, I felt there was enough of a posterior coaptation margin after testing with
ink and dynamic inflation of the ventricle. After coming off cardiopulmonary bypass the first time to evaluate, there was a mild to moderate degree of systolic anterior motion of the leaflets resulting in insufficiency. This was not satisfactory
and so I opted to rearrest the heart and removed the 2 [place]-Michael sutures placed to the posterior leaflet. I used the cord X system anchoring [place]-Michael sutures to both the anterior lateral and posterior medial papillary muscle heads. I placed 2 pairs
of CV 4 [place]-Michael to the anterior leaflet at the A1 A2 interface and the A2 A3 interface followed by 3 pairs of [place]-Michael sutures to the posterior leaflet along each scallop at the free margin. I then tied down the [place]-Michael sutures accordingly to
promote an even more posterior coaptation margin. The left atrium was then closed in the usual fashion and then evaluating of the mitral valve under ROSY revealed no more systolic anterior motion, a posterior coaptation line, and no residual mitral
valve insufficiency. The mean gradient across the valve was 2 mmHg. The LVOT gradient was low as well. He did not require any blood products, did not require any inotropic support, and was ventricularly paced at a rate of 60. His underlying
rhythm was sinus bradycardia in the 30s.
Description of Procedure: The patient was brought to the operating room and placed supine in the table with their right side bumped up and right arm down. Arterial and central access was performed by anesthesiology. The patient was prepped from chin
to toes in the typical sterile fashion. Trans esophageal evaluation of cardiac function and all valvular structures was conducted. Before commencing, a time out was performed by all members of the team. All were in agreement with the procedure and
laterality and I proceeded. A small right groin incision was made to expose the common femoral artery and vein. A total of 45,000 units of heparin was given. A 5-6 cm right lateral thoracotomy was performed over the 4th intercostal space verified by
visualization of the hilum. The common femoral artery and vein were cannulated under transesophageal guidance using open Seldinger technique. The arterial line was verified to have an appropriate bounce and pressure correlating with testing. Once
the ACT was above 400, retrograde autologous priming was done and we commenced cardiopulmonary bypass. Target core temperature was 34�C.
Carbon dioxide was used to flood the field. The course of the phrenic nerve was identified to prevent injury. The pericardium was opened and two stay sutures were placed to facilitate a ``pericardial table.�� The oblique sinus was developed followed
by the inter atrial groove. An antegrade root vent was inserted and secured with a pursestring suture. The pump flow and mean arterial pressure were lowered and an aortic cross clamp was applied to the ascending aorta. A total of 1.2L initial dose
of Antegrade cardioplegia was delivered. We had rapid electro myocardial quiescence at 300 cc of cardioplegia. The ventricle was monitored for distension by echocardiogram during this time. The left atrium was incised and enlarged. A left atrial
lift retractor was placed. The mitral valve was inspected. The mitral valve was repaired as described above. After coming off cardiopulmonary bypass the first time, I was not satisfied as there was a mild to moderate degree of systolic anterior
motion resulting insufficiency. Albeit, this did improve slightly with volume loading given the long length of the anterior leaflet and the turbulence across the LVOT I was not satisfied. I elected to rearrest the heart after placing the
cross-clamp and giving an additional 500 cc of antegrade cardioplegia with rapid arrest at about 100 cc. The mitral valve was repaired again as described above. The left atriotomy was closed with 3-0 prolene in a running fashion leaving a
ventricular vent in place to de-air. After filling the heart, the vent was removed and the prolene was secured with a corknot. Unipolar ventricular pacing wire was placed on the base of the right ventricle. The patient was placed into Trendelenburg
position and pump flows were lowered. The clamp was slowly removed with the root vent turned on. De-airing maneuvers were performed. We started to rewarm with a target of 36.5�C.
As the heart recovered, the mitral valve and ventricular function were assessed under transesophageal echocardiogram. The LV vent and root vents were removed. Once weaning parameters were satisfactory, cardiopulmonary bypass flow was lowered until
we were off cardiopulmonary bypass the mitral valve was inspected again. All surgical sites were inspected for hemostasis and appeared appropriate. The lines were clamped and the arterial was relocated to the venous cannula to give back volume. A
test dose of protamine was delivered and patient was monitored for any adverse reactions followed by complete protamine dosing. The femoral vessels were decannulated and repaired as indicated. The pericardium was approximated with 2-0 ethibond
sutures secured with corknots. One 19F Laron drain remained in the pleural space and threaded into the pericardium. There was an excellent palpable distal to the [employer]AL[employer] AC[employer]ITION [employer] cannulation site. Local analgesia was injected to the thoracotomy. The rib space
was approximated with #2 vicryl suture. The incision was closed in layers in a running fashion.
All instrument, sponge, and needle counts were confirmed to be correct x 2 at the end of the operation. The patient was transferred to the cardiac intensive care unit in critical but stable condition.
I, Dr. Aldo Ernst, was present, scrubbed for, and performed all critical elements of this procedure.
Aldo Ernst MD, MS
Cardiothoracic Surgeon
[facility]
This dictation was created using the [email or web address] dictation system. Please excuse any grammatical, typographical, or 'sound alike' errors
[2024-04-23] MEDS: NEURONTIN PO ×2 (12:37→21:55)
[2024-04-23] MEDS: NSS 500 IV ×2 (12:37→14:08)
--- NOTE | 2024-04-23 12:39 | CON.INTV ---
Consultation
Consultation Request
Date/Time Consultation Requested: 04/23/2024 - 1212
Date/Time Consultation Performed: 04/23/2024 - 1237
Requesting Provider: DAREN Abreu
Performing Provider: Javon Bryant MD
Reason for Consultation: s/p MV repair
Medical History
-
Chief Complaint: Elective MV repair
History of Present Illness:
68-year-old male non-smoker with a past medical history of MM s/p SCT (2016) on Revlimid maintenance therapy, history of trigeminy, and severe MR who presents with elective mitral valve repair. Patient known to the cardiothoracic surgery service
with last visit on 03/06/[address] Ernst. Patient has a history of nonrheumatic mitral valve regurgitation. He underwent ROSY on 01/31/2024 showing bileaflet mitral valve prolapse with severe P2 prolapse and torn cord with eccentric severe MR.
His LVEF was 65% with normal RV size and function. He feels fatigue with reduced stamina and tachycardic with exertion. He underwent left heart catheterization on 03/18/2024 showing normal coronary arteries. Surgical intervention with mitral valve
surgery were discussed and he agreed to a mitral valve repair. Today he underwent right minithoracotomy with radical mitral valve repair and pneumolysis of intrathoracic adhesions of the right lower lung to the anterior and diaphragmatic surface.
There were no complications and he was transferred to the CVICU for postoperative care with director of revenue/pulmonary services consulted for additional management/recommendations.
When I saw the patient he was in bed in no acute distress, and had already been extubated in the OR. He had an OPA in place and was oxygenating via a facemask at 8 L/min. SpO2 was 96%, heart rate 68, BP via left brachial A-line 98/68, PAP 26/17
and CO/CI: 2.82/1.5, respectively. He is currently on Levophed at 1mcg/min, Precedex at 0.3mcg/kg/hr and insulin drip at 3.5 units/hr. He has a right pleural chest tube x1 in place.
PMHx: Severe mitral regurgitation, history of palpitations, multiple myeloma s/p stem cell transplant (2016) on Revlimid, neuropathy, benign ventricular ectopy/trigeminy
PSHx: Stem cell transplant (2016)
Past Medical History
Past Medical History: Other (Above as per HPI)
Past Surgical History: Other (Above as per HPI)
Social History
Tobacco: Non-smoker
Alcohol: None
Drug: None
Employment: Employed (Physician)
Family History
Family History: Cancer (Father: Multiple myeloma + colon cancer; mother: Multiple myeloma) and Other (Mother: Adenomatous colonic polyp)
Allergies / Home Medications
Allergies
Allergy/AdvReac Type Severity Reaction Status Date / Time
bee venom protein (honey bee) Allergy Severe Anaphylaxis Verified 04/01/24 10:42
Home Medications
�Medication �Instructions �Recorded �Confirmed �Last Taken �Type
lenalidomide 10 mg capsule 10 mg PO QPM 01/31/24 04/23/24 04/08/24 09:00 History
(Revlimid)
epinephrine 0.3 mg/0.3 mL 0.3 mg IM PRN PRN bee stings 03/18/24 04/23/24 03/25/24 07:00 History
injection, auto-injector (EpiPen
2-Feng)
aspirin 81 mg tablet,delayed 81 mg PO HS 04/01/24 04/23/24 04/22/24 18:00 History
release
Review of Systems
Vitals / Labs / Diagnostic Testing
Vital Signs
Temp Pulse Resp BP Pulse Ox
98.0 F 63 14 152/94 100
04/23/24 05:00 04/23/24 05:00 04/23/24 05:00 04/23/24 05:28 04/23/24 05:00
Diagnostic Testing:
Physical Exam
-
HEENT: Normocephalic, Anicteric and Other (+OPA in place)
Cardiovascular: S1/S2 and Peripheral Edema (negative)
Respiratory: Wheeze (negative), Rales (negative), Rhonchi (negative) and Non-Labored Respirations
GI: Soft, Non Distended, Non Tender and Normal Bowel Sounds
Neurology: Tremors (negative) and Other (sedated)
Skin: Warm and Dry
General: Respiratory Distress (negative), Chills (negative) and Sweats (negative)
Assessment
-
Assessment: 68-year-old male non-smoker with a past medical history of MM s/p SCT (2016) on Revlimid maintenance therapy, history of trigeminy, and severe MR who presents with elective mitral valve repair. Patient known to the cardiothoracic
surgery service with last visit on 03/06/[address] Ernst. Patient has a history of nonrheumatic mitral valve regurgitation. 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
eccentric severe MR. His LVEF was 65% with normal RV size and function. He feels fatigue with reduced stamina and tachycardic with exertion. He underwent left heart catheterization on 03/18/2024 showing normal coronary arteries. Surgical
intervention with mitral valve surgery were discussed and he agreed to a mitral valve repair. Today he underwent right minithoracotomy with radical mitral valve repair and pneumolysis of intrathoracic adhesions of the right lower lung to the
anterior and diaphragmatic surface. There were no complications and he was transferred to the CVICU for postoperative care with director of revenue/pulmonary services consulted for additional management/recommendations.
Chronic conditions OUTBOUND SALES CONSULTANT: Severe mitral regurgitation, history of palpitations, multiple myeloma s/p stem cell transplant (2016) on Revlimid, neuropathy, benign ventricular ectopy/trigeminy
Impression:
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
#Acute on chronic anemia (Hb was approximately 12 between January - March 2024)
#Acute thrombocytopenia
#History of MM s/p SCT (2016)
#Neuropathy
#History of ventricular ectopy with trigeminy
Plan:
Patient had already been extubated in the OR, and is currently being oxygenated via facemask at 8 L/min with an OPA in place
- Remove the OPA once he awakens and then slowly titrate down O2 by changing to nasal cannula and lowering as tolerated to keep SpO2 >90-94%
prn nebulized bronchodilators - not currently bronchospastic
Once he awakens, then would encourage IS use 10x per hour for at least 4 hrs a day
Pulmonary artery catheter parameters will be followed
Pressors/antihypertensive/inotropes/diuretics will be provided as needed
Maintain MAP>65
Replete electrolytes with K>4, Mg>2
Monitor chest tube output (right pleural x1)
Monitor hemoglobin
Monitor platelet count and coags
Transfuse blood products as needed to maintain Hb>7g/dL, plt>50k (given post-operative status)
CT surgery managing chest tubes
Monitor blood sugar to maintain euglycemia with goal BG 140-180
Insulin drip per protocol
Aspiration precautions
DVT prophylaxis
Early nutrition
Early mobilization
Critical care statement: A total of 41 minutes of critical care time was provided for this patient today. This includes management of ventilator, spontaneous breathing trial, arterial blood gases, pressors, of unstable vital signs, evaluation of the
patient at bedside, reviewing the patient's pertinent medical records including radiographs, microbiology, laboratory evaluations, and discussion with primary team and critical care nursing.
[2024-04-23 12:53] LABS: Glucose - Point of Care 145 mg/dl (70-99)
--- NOTE | 2024-04-23 13:08 | W.PN.CARDCBS ---
Addendum entered and electronically signed by Peng Eng MD 04/23/24 16:17:
I saw and examined the patient.
The Nuclear Engineering Technician's note was reviewed and I agree with the note.
Comment:
GEN: No distress, awake,
HEENT: supple, anicteric, mmm
LUNGS: CTA, no wheezes/rales
CV: Reg, S1/S2, no murmur
ABD: soft, BS+, NT/ND
EXT: No edema
NEURO: Gross non-focal
SKIN: No rash
PLan:
Doing well status post mitral valve repair. Had some brief 2-1 AV block but now is back in sinus with a first-degree AV block.
Continue to follow telemetry. Continue supportive care.
Platelet count at 111,000. Continue to follow.
Hemoglobin at 10.6
Original Note:
Today's Communication / Plan
-
continue post op care
follow rhythm
Impression / Plan
-
Primary Trade Clerk: Dr. Eng
Assessment:
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
2:1 AV block by post op EKG
Post op anemia/thrombocytopenia
MM s/p stem cell transplant 2016, on chronic revlimid therapy
PVCs
ECHO 12/28/23: EF 65-70%, mild cLVH, GLS -21.5%, mildly dilated RA, bileaflet MV prolapse posterior>anterior, severe eccentric MR
Plan:
-s/p radical MV repair 04/23/24 for severe MR with bileaflet prolapse
-sedated at present
-by post op EKG appears to be in 2:1 heart block. will follow on tele. currently vpacing @68.
-follow hgb/plts, 10.6/111K
-on levo @1, wean as able. BPs stable
-continue post op care
-d/w nursing, CT surgical PA
Progress Note - Trade Clerk
Subjective
Date of Service: April 23, 2024
sedated
Objective
Labs:
Labs
Hgb 11.8 g/dL (13.0-18.0) L 04/04/24 08:34
Hct 32.3 % (39.0-52.0) L 04/04/24 08:34
Plt Count 153 10^3/uL (130-400) 04/04/24 08:34
PT 13.3 Sec (11.4-14.6) 04/04/24 08:34
INR 1.01 04/04/24 08:34
APTT 30.4 Sec (23.4-35.0) 04/04/24 08:34
Sodium 144 mmol/L (135-145) 04/04/24 08:34
Potassium 3.7 mmol/L (3.5-5.1) 04/04/24 08:34
BUN 23 mg/dl (9-20) H 04/04/24 08:34
Creatinine 0.9 mg/dL (0.7-1.3) 04/04/24 08:34
Glucose 86 mg/dl (70-99) 04/04/24 08:34
Vital Signs and I&O:
Vital Signs
Temp Pulse Resp BP Pulse Ox
98.0 F 63 14 152/94 100
04/23/24 05:00 04/23/24 05:00 04/23/24 05:00 04/23/24 05:28 04/23/24 05:00
Vital Signs
Temp Pulse Resp BP Pulse Ox
98.0 F 63 14 152/94 100
04/23/24 05:00 04/23/24 05:00 04/23/24 05:00 04/23/24 05:28 04/23/24 05:00
Physical Exam
Physical Exam
GEN: No distress, sedated
HEENT: supple, mmm
LUNGS: CTA B/L, no wheezes
CV: Reg, S1/S2, no murmur
ABD: soft, NT/ND
EXT: No cyanosis, clubbing, edema
NEURO: sedated
SKIN: Warm, pink, dry. No rash. Chest dressings c/d/i
[2024-04-23 13:09] LABS: HCO3 22.2 mmol/L (21-28); Ionized Calcium 1.35 mMOL/L (1.15-1.33); O2 Saturation % 99.3 % (94-98); PCO2 44 mmHg (35-48); PO2 159 mmHg (83-108); Potassium 4.1 mMOL/L (3.5-5.1); Sodium 136 mMOL/L (136-145); pH 7.31 (7.35-7.45)
[2024-04-23 13:13] LABS: Mixed Venous O2 Saturation 65.8 %
--- NOTE | 2024-04-23 13:15 | PTCARENOTE ---
Pt arrived from CVOR to CVICU at 1245. Pt drowsy, arrived on Precedex. Pt 100% V paced with epicardial V wire, set to VVI 68/15/2. Post-op EKG showing 2nd degree AV block [place] I. BP 101/69 MAP 82, PA 26/17, CVP 15, CO 2.82, CI 1.50, SVR 1843.
Remains on Levo gtt at 2mcg/min. Bilateral radial and dorsalis pedal pulses palpable. Pulse oximetry 98% on 8L simple mask, arrived from OR with LMA in place. Right pleural chest tube in place, no sign of air leak or crepitus. Drainage red in color.
Bowel sounds hypoactive. George catheter in place draining yellow urine. Right lateral chest incision, right chest incision, and right groin incision all approximated with surgical adhesive and WAYNE. Right IJ cordis with Hillister at 45cm. Left brachial
[place] intact. Pt remains on insulin gtt per glycemic protocol. Post-op labs collected. X-ray obtained.
[2024-04-23 13:16] LABS: Hematocrit 29.3 % (39.0-52.0); Hemoglobin 10.6 g/dL (13.0-18.0); Platelet Count 111 10^3/uL (130-400)
[2024-04-23 13:19] LABS: APTT 35.2 Sec (23.4-35.0); INR 1.37; PT 17.2 Sec (11.4-14.6)
[2024-04-23 13:21] LABS: Blood Urea Nitrogen 22 mg/dl (9-20); Estimated Creatinine Clearance 62 ml/min; Glucose 136 mg/dl (70-99); Magnesium 3.7 mg/dl (1.6-2.3)
--- NOTE | 2024-04-23 14:00 | PTCARENOTE ---
Epicardial V wire appeared to be pacing inappropriately. CT Dipti NG, at bedside. Epicardial wire paused. Underlying rhythm possibly 2:1 AV block, HR 60's. BP tolerating. Shortly after, rhythm appeared to be SR with first degree AV block which was
confirmed with repeat EKG.
[2024-04-23 14:04] LABS: Glucose - Point of Care 237 mg/dl (70-99)
[2024-04-23] MEDS: TYLENOL PO ×2 (14:08→21:55)
[2024-04-23] MEDS: SODIUM BICARBONATE 50 MEQ IV ×2 (14:08→17:07)
[2024-04-23 15:09] LABS: Glucose - Point of Care 167 mg/dl (70-99)
[2024-04-23] MEDS: ASPIRIN RECTAL (15:41)
[2024-04-23] MEDS: TYLENOL 650 MG PO (16:00)
[2024-04-23] MEDS: NEURONTIN 100 MG PO (16:01)
[2024-04-23 16:09] LABS: Glucose - Point of Care 105 mg/dl (70-99)
--- NOTE | 2024-04-23 16:33 | W.PN.ANESINT ---
Anesthesia Intubation Note
- Intubation Note
Intubation Note:
Diagnosis: code 99, respiratory arrest
Blade: mac 4
Tube Size: 8.0
Depth: 7.0
Side Taped: right
Drugs Used: none
Grade View: 1
EtCO2 Present: yes
Atraumatic: yes
Attempts: 1
Insertion Start and Stop Time: 8985-7606
SaO2 Pre:
SaO2 Post: 99
Glidescope Used: yes
Other Airway Adjustments:
Pre-Oxygenated:
Portable Chest X-Ray:
RSI: yes
Suctioned:
Bilateral Breath Sounds Confirmed: yes
Vent Settings:
Settings per _x__Attending Physician
[2024-04-23] MEDS: CALCIUM CHLORIDE 10% SYRINGE 500 MG IV (16:50)
[2024-04-23 16:51] LABS: B.E. -3.5 mmol/L; HCO3 22.1 mmol/L (21-28); Ionized Calcium 1.28 mMOL/L (1.15-1.33); O2 Saturation % 99.7 % (94-98); PCO2 41 mmHg (35-48); Potassium 3.5 mMOL/L (3.5-5.1); Sodium 141 mMOL/L (136-145); pH 7.34 (7.35-7.45)
[2024-04-23 16:52] LABS: Ionized Calcium 1.25 mMOL/L (1.15-1.33)
[2024-04-23 16:53] LABS: Mixed Venous O2 Saturation 71.2 %
[2024-04-23 16:54] LABS: Hematocrit 29.4 % (39.0-52.0); Hemoglobin 10.6 g/dL (13.0-18.0); Mean Corp Hgb Conc. 36.1 g/dL (33.0-37.0); Mean Corpuscular Hgb 35.8 pg (27.0-31.0); Mean Corpuscular Volume 99.3 fL (80.0-94.0); Mean Platelet Volume 9.1 fL (7.4-10.4); Platelet Count 127 10^3/uL (130-400); Red Blood Cell Count 2.96 10^6/uL (4.70-6.10); White Blood Cell Count 9.9 10^3/uL (4.8-10.8)
[2024-04-23 16:58] LABS: PO2 238 mmHg (83-108)
[2024-04-23 16:58] LABS: INR 1.17; PT 15.2 Sec (11.4-14.6)
[2024-04-23 16:59] LABS: APTT 28.8 Sec (23.4-35.0)
--- NOTE | 2024-04-23 17:00 | PTCARENOTE ---
Addendum entered by Cleveland Ragsdale RN 04/24/24 10:51:
1611 pt with increasing PVCs and bigeminy. VFib arrest at 1620. ROSC 1624.
Original Note:
Pt resting in bed having increasing PVCs. VFib arrest at 1611. Chest compressions started. Pt shocked x3. Epi and lidocaine given. Amio push given. Intubated. ROSC 1624. Pt able to follow commands post code. Precedex gtt reinitiated. Versed and
fentanyl given prior to bedside ROSY. Amio gtt started. Repeat EKG completed. Pt SR.
[2024-04-23 17:04] LABS: ALT (SGPT) 36 U/L (0-50); AST (SGOT) 84 U/L (17-59); Albumin 3.2 g/dl (3.5-5.0); Alkaline Phosphatase 93 U/L (38-126); Blood Urea Nitrogen 24 mg/dl (9-20); Calcium 9.1 mg/dl (8.4-10.2); Carbon Dioxide 22 mmol/L (22-30); Chloride 110 mmol/L (98-107); Estimated Creatinine Clearance 57 ml/min; Glucose 119 mg/dl (70-99); Magnesium 3.4 mg/dl (1.6-2.3); Potassium 3.7 mmol/L (3.5-5.1); Sodium 142 mmol/L (135-145); Total Bilirubin 1.8 mg/dl (0.2-1.3); Total Protein 5.4 g/dl (6.3-8.2); eGFR > 60.00
[2024-04-23] MEDS: VERSED 2 MG IV (17:07)
[2024-04-23] MEDS: SUBLIMAZE 100 MCG IV (17:08)
[2024-04-23] MEDS: KCL 50 IV ×2 (17:11→17:58)
[2024-04-23] MEDS: CORDARONE 518 MG IV (17:11)
[2024-04-23 17:29] LABS: Glucose - Point of Care 118 mg/dl (70-99)
[2024-04-23] MEDS: CORDARONE 103 MG IV (17:39)
[2024-04-23] MEDS: ANCEF 5 IV (17:48)
[2024-04-23] MEDS: ASPIRIN 300 MG RECTAL (17:51)
--- NOTE | 2024-04-23 18:10 | W.PN.UPDATE ---
Update Note
Progress Note Update
Patient Vfib arrested at 1611; Code blue was called. CPR was . Patient was shocked 3x and gave lidocaine and 1mg epi. We achieved ROSC @ 1624. After rosc we pushed 150mg amiodarone and will continue the amiodarone gtt at 1mg/min overnight. Patient
eventually woke up and was able to follow commands in all four extremities and then patient was sedated for ROSY.
[2024-04-23 18:14] LABS: B.E. 2.7 mmol/L; HCO3 25.5 mmol/L (21-28); Ionized Calcium 1.41 mMOL/L (1.15-1.33); O2 Saturation % 99.3 % (94-98); PCO2 32 mmHg (35-48); PO2 143 mmHg (83-108); Sodium 140 mMOL/L (136-145); pH 7.51 (7.35-7.45)
[2024-04-23 18:18] LABS: Hematocrit 26.6 % (39.0-52.0); Hemoglobin 9.7 g/dL (13.0-18.0); Platelet Count 110 10^3/uL (130-400)
--- NOTE | 2024-04-23 18:30 | PTCARENOTE ---
Precedex off. CPAP trial started 1824.
[2024-04-23 18:42] LABS: Mixed Venous O2 Saturation 61.9 %
--- NOTE | 2024-04-23 19:00 | PTCARENOTE ---
pt vomited small amount of clear/yellow bile, suctioned in line and through mouth, zofran given. Gas sent, looks good, CTPA says OK to extubate. RT tigertexted for extubation
--- NOTE | 2024-04-23 19:00 | PTCARENOTE ---
Assumed care of patient @ 1900. recieved pt laying in bed, intubated post code. Pt is awake, moving all extremities, and writing on paper. Drowsy but awakens easily. Sinus bart on monitor with ocasional 2nd degree block, HR 30s-50s. PAPs 20s/10s,
CVP ~ 15. BP 90s/100s systolically on 1 of levo. 8.0 ET tube 24 @ lip, CPAP 40 percent. 1 pleural chest tube with serosang drainage. Belly hypoactive, soft. burns draining clear yellow urine. R lateral chest inscisions CDI. R IJ cordis with [place] tap[place]
brachial A line, PIV all patent. central lines zeroed, flushed. recieved with levo at 1, amio at 1 , insulin per protocol .
[2024-04-23 19:08] LABS: B.E. 0.5 mmol/L; HCO3 25.4 mmol/L (21-28); O2 Saturation % 98.9 % (94-98); PCO2 41 mmHg (35-48); PO2 146 mmHg (83-108)
[2024-04-23 19:09] LABS: Glucose - Point of Care 141 mg/dl (70-99)
[2024-04-23] MEDS: ZOFRAN 4 MG IV (19:10)
--- NOTE | 2024-04-23 19:51 | PTCARENOTE ---
pt extubated at 1930 to 6L NC w/o incident
[2024-04-23] MEDS: DOBUTREX 500 MG 250 IV (20:28)
[2024-04-23 21:00] LABS: Glucose - Point of Care 97 mg/dl (70-99)
[2024-04-23] MEDS: DILAUDID 0.25 MG IV (21:01)
[2024-04-23] MEDS: SENOKOT-S PO (21:17)
[2024-04-23 23:07] LABS: Glucose - Point of Care 93 mg/dl (70-99)
[2024-04-24] VITALS (14 sets, daily range): BP systolic 76–135; BP diastolic 42–97; BMI 20.9
--- NOTE | 2024-04-24 | PTCARENOTE ---
Dilaudid .25 given for rib pain. No other change in assessment .
[2024-04-24] MEDS: DILAUDID 0.25 MG IV ×2 (00:10→05:47)
[2024-04-24 01:07] LABS: Glucose - Point of Care 109 mg/dl (70-99)
[2024-04-24] MEDS: ANCEF 5 IV ×2 (03:34→09:22)
[2024-04-24] MEDS: ROXICODONE 5 MG PO ×3 (03:34→20:01)
--- NOTE | 2024-04-24 03:37 | W.PN.CT ---
Addendum entered and electronically signed by Cordell Abdi MD 04/24/24 08:22:
I saw and examined the patient.
The PA's note was reviewed and I agree with the note.
Comment:
No major overnight issues after acute R on T code with ACLS resuscitation. Patient was extubated at 1930 hrs. His amiodarone drip was discontinued secondary to bradycardia overnight and he was started on low-dose dobutamine for rate. This morning
his heart rate is in the 70s in sinus. He does have frequent PVCs. His dobutamine was discontinued during rounds. P.O. amiodarone will be continued.
- Maintain chest tubes today
- DC Burns
- Once patient is stable off of dobutamine, can DC Armstrong-Luis catheter/A-line
- Maintain external pacing/defibrillator pads, discussed with EP AICD implantation
- Repeat echocardiogram in 1 to 2 days
- Out of bed, I-S
Original Note:
Today's Communication / Plan
-
Plan:
-No major issues overnight. Hemodynamically and neurologically intact
-Pt was initially extubated introap but required reintubation during code 9 @ CVICU for v-fib arrest. Successfully extubated @ 1930 on 04/23/24
-Amiodarone gtt d/c'd last night d/t bradycardia in the 30's. Currently on Dobutamine gtt @ 0.5 mg/kg/min and insulin gtt per protocol. Levophed gtt weaned off following initiation of dobutamine last night
-Noted to have PVC's/NSVT this AM with dobutamine @ 1, prompting weaning to 0.5 mcg/kg/min. Weaned off dobutamine @ 0530, but CI 1.86 so resumed @ 0.5
-Last CI 2.79 (dobutamine @ 0.5), dropped to 1.86 with dobutamine off, MVO2 70.8%, U/O since OR 935 mL
-Monitor chest tube drainage: R pleural/med 185/415 (dumped 90 mL of dark residual blood when turned this AM). CXR looks clear on my review, f/u official report
-Cont. current meds (ASA, dobutamine gtt, Amiodarone and BB currently on hold)
-Replete K, 3.8; mg++ 2.6, mag oxide placed on hold
-D/C swan and a-line when able to wean of dobutamine
-D/C burns catheter later today
-Tele phase once off insulin gtt today
-Maintain cordis
-Maintain temporary PW (will pull before d/c home)
-Encourage use of IS
-Wean off of O2 as tolerated
-OOB into chair/Ambulate
-Repeat echo in 1-2 days
Assessment / Plan
-
Assessment:
S/P Right mini thoracotomy with right femoral artery and vein cannulation under ROSY guidance/Radical mitral valve repair (38 mm band annuloplasty, 5 pairs of CV 4 [place] with 3 pairs going to the posterior leaflet in 2 pairs to the anterior
leaflet, triangular resection of the flail segment and primary closure)/Pneumolysis of intrathoracic adhesions of right lower lung to the anterior and diaphragmatic surface, by Dr. Ernst, 04/23/24, pod#1
-Severe mitral valve degeneration, myxomatous and degenerative mitral valve disease, type II pathology with flail/torn cords at the P2 P1 interface resulting in severe insufficiency
-Mild TR
-LVEF 60% per intraop ROSY
-Multiple myeloma (with neutropenia/anemia) S/P stem cell transplant 2016, on Revlimid
-Fatigue
-Ventricular ectopy/trigeminy
-Palpitations
-Neuropathy
-Anaphylaxis to bee venom
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
-Acute postop v-fib arrest S/P CPR (chest compressions, chock x 3, and meds, coded x ~10 min before achieving ROSC)
-Acute postop frequent PVC's/NSVT
-Acute postop 2:1 AV block
-Acute postop cardiogenic shock (CI 1.38), S/P dobutamine gtt
-Acute postop bradycardia, likely d/t Amiodarone gtt and bolus
-Acute postop blood loss/Anemia on chronic anemia (stable without PRBCs)
-Acute postop atelectasis
-Acute postop hypovolemia with subsequent hypervolemia
Discussed patient care with: Cardiology, Nursing, Respiratory Therapy, Pharmacy and Care Team
Subjective
Procedure
S/P Right mini thoracotomy with right femoral artery and vein cannulation under ROSY guidance/Radical mitral valve repair (38 mm band annuloplasty, 5 pairs of CV 4 [place] with 3 pairs going to the posterior leaflet in 2 pairs to the anterior
leaflet, triangular resection of the flail segment and primary closure)/Pneumolysis of intrathoracic adhesions of right lower lung to the anterior and diaphragmatic surface, by Dr. Ernst, 04/23/24
-
Date of Service: April 24, 2024
Pt c/o incisional pain, otherwise feels well
Objective Data
-
PT 15.2 Sec (11.4-14.6) H 04/23/24 16:29
INR 1.17 04/23/24 16:29
APTT 28.8 Sec (23.4-35.0) 04/23/24 16:29
Vital Signs
Vital Signs
Temp Pulse Resp BP Pulse Ox
98.1 F 72 12 122/67 99
04/24/24 01:00 04/24/24 01:30 04/24/24 01:30 04/24/24 01:26 04/24/24 01:30
CT Intake/Output/Weight
04/23/24 04/23/24 04/24/24
06:59 18:59 06:59
Intake Total 1814.6 / 2136.3 321.7 / 2136.3
Output Total 675 / 1020 345 / 1020
Balance 1139.6 / 1116.3 -23.3 / 1116.3
SaO2: 99 (2L)
Physical Exam
-
General: Awake, Oriented and AOx3
Cardiovascular: Regular rate & rhythm, No Murmurs and No Gallop
Respiratory: Decreased Breath Sounds (at bases, otherwise clear)
Sternum: Stable
Incision: Clean, Dry, Intact and Dressing Intact
Extremities: No Edema
Data Reviewed
-
Lab Results: Results Reviewed
Medications: Active Meds Reviewed
Chest X-Ray: Report Reviewed and Image Reviewed
ECG: Report Reviewed and Image Reviewed
[2024-04-24 03:54] LABS: Glucose - Point of Care 89 mg/dl (70-99)
--- NOTE | 2024-04-24 04:00 | PTCARENOTE ---
labs drawn and sent, EKG completed, salvatore given for pain. no other change in assessment.
[2024-04-24 04:02] LABS: Mixed Venous O2 Saturation 70.8 %
[2024-04-24 04:12] LABS: Hematocrit 25.9 % (39.0-52.0); Hemoglobin 9.4 g/dL (13.0-18.0); Mean Corp Hgb Conc. 36.3 g/dL (33.0-37.0); Mean Corpuscular Hgb 35.7 pg (27.0-31.0); Mean Corpuscular Volume 98.5 fL (80.0-94.0); Mean Platelet Volume 9.7 fL (7.4-10.4); Platelet Count 102 10^3/uL (130-400); Red Blood Cell Count 2.63 10^6/uL (4.70-6.10); Red Cell Dist. Width 14.2 % (11.5-14.5); White Blood Cell Count 6.8 10^3/uL (4.8-10.8)
--- NOTE | 2024-04-24 04:20 | PTCARENOTE ---
pt with 10 beat run of VT, ctpa notified
[2024-04-24 04:26] LABS: Blood Urea Nitrogen 26 mg/dl (9-20); Calcium 9.3 mg/dl (8.4-10.2); Carbon Dioxide 28 mmol/L (22-30); Chloride 111 mmol/L (98-107); Estimated Creatinine Clearance 62 ml/min; Glucose 85 mg/dl (70-99); Magnesium 2.6 mg/dl (1.6-2.3); Potassium 3.8 mmol/L (3.5-5.1); Sodium 145 mmol/L (135-145); eGFR > 60.00
[2024-04-24] MEDS: KCL 50 IV (05:16)
[2024-04-24 05:35] LABS: ALT (SGPT) 45 U/L (0-50); AST (SGOT) 144 U/L (17-59); Alkaline Phosphatase 80 U/L (38-126); Total Bilirubin 1.1 mg/dl (0.2-1.3); Total Protein 5.2 g/dl (6.3-8.2)
[2024-04-24] MEDS: TYLENOL 1000 MG PO ×3 (05:47→19:42)
[2024-04-24 06:00] LABS: Glucose - Point of Care 103 mg/dl (70-99)
[2024-04-24 07:02] LABS: Glucose - Point of Care 99 mg/dl (70-99)
--- NOTE | 2024-04-24 08:14 | W.PN.CARDCBS ---
Addendum entered and electronically signed by Sergey Marroquin MD 04/24/24 09:37:
I saw and examined the patient.
The GAS FLOW REGULATOR or PA's note was reviewed and I agree with the note.
Comment: General: Well developed, well nourished in NAD.
Neck: Supple, no JVD, HJR, carotids +2 B/L, no bruits bilaterally.
Heart: Non displaced PMI, RRR, no murmurs, No S3, S4, no rubs.
Lungs: Scattered rhonchi
Sternal dressings noted
Extremities: No clubbing, cyanosis or edema bilaterally.
Neuro: Grossly nonfocal, awake, alert and oriented x3.
Remains in sinus rhythm. Brief episodes of nonsustained V. tach. Continues to do well from a CT surgery standpoint recovering from mitral valve repair. Discussed with CT surgery. Current plan is to follow rhythm on amiodarone. Will arrange for
LifeVest. Dobutamine has been stopped. Eventual beta-chet if blood pressure tolerates.
Original Note:
Today's Communication / Plan
-
po amiodarone
follow rhythm
K repleted
post op care
Impression / Plan
-
Primary Structurer: Dr. Eng
Assessment:
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
2:1 AV block by post op EKG
Vfib arrest requiring CPR, shock x3, lidocaine, epi with ROSC 04/23/24
Post op anemia/thrombocytopenia
MM s/p stem cell transplant 2016, on chronic revlimid therapy
PVCs/ventricular ectopy
ECHO 12/28/23: EF 65-70%, mild cLVH, GLS -21.5%, mildly dilated RA, bileaflet MV prolapse posterior>anterior, severe eccentric MR
Plan:
-s/p radical MV repair 04/23/24 for severe MR with bileaflet prolapse
-initially had some 2:1 av block post op
-then had Vfib arrest ~1620 04/23 requiring CPR, shock x3, lidocaine, epi with ROSC. s/p urgent bedside ROSY without structural issues of mitral valve or significant wall motion abnormalities. code felt to be due to R on T.
-started on IV amio gtt, however stopped overnight due to bradycardia.
-extubated @1930 on 04/23.
-remains with several brief runs of NSVT on review of tele overnight. d/w CT surgery, plan to start po amio this morning
-will need to follow rhythm closely. if with recurrent arrhythmia, may need to consider EP eval for lifevest vs AICD
-K 3.8, repleted this AM. mag stable
-currently on dobut @0.5, wean as able
-repeat echo in 24-48 hours
-continue post op care
-d/w nursing, CT surgical PA
Progress Note - Structurer
Subjective
Date of Service: April 24, 2024
resting comfortably
Objective
Labs:
04/24/24 03:49
04/24/24 03:49
Labs
Hgb 9.4 g/dL (13.0-18.0) L 04/24/24 03:49
Hct 25.9 % (39.0-52.0) L 04/24/24 03:49
Plt Count 102 10^3/uL (130-400) L 04/24/24 03:49
PT 15.2 Sec (11.4-14.6) H 04/23/24 16:29
INR 1.17 04/23/24 16:29
APTT 28.8 Sec (23.4-35.0) 04/23/24 16:29
Sodium 145 mmol/L (135-145) 04/24/24 03:49
Potassium 3.8 mmol/L (3.5-5.1) 04/24/24 03:49
BUN 26 mg/dl (9-20) H 04/24/24 03:49
Creatinine 1.1 mg/dL (0.7-1.3) 04/24/24 03:49
Glucose 85 mg/dl (70-99) 04/24/24 03:49
Vital Signs and I&O:
Vital Signs
Temp Pulse Resp BP Pulse Ox
98.2 F 70 24 96/63 96
04/24/24 07:00 04/24/24 07:04 04/24/24 07:04 04/24/24 06:29 04/24/24 07:04
Vital Signs
Temp Pulse Resp BP Pulse Ox
98.2 F 70 24 9663 96
04/24/24 07:00 04/24/24 07:04 04/24/24 07:04 04/24/24 06:29 04/24/24 07:04
Intake & Output
04/22/24 04/23/24 04/24/24 04/25/24
07:59 07:59 07:59 07:59
Intake Total 2304.0 / 2304.0
Output Total 1425 / 1425
Balance 879.0 / 879.0
Physical Exam
Physical Exam
GEN: No distress, resting comfortably. on supp O2
HEENT: supple, mmm
LUNGS: no audible wheezes
CV: Reg rhythm on tele
SKIN: Warm, pink, dry. No rash
--- NOTE | 2024-04-24 08:18 | W.PN.INTV ---
Today's Communication / Plan
Recommendations
Up OOB as tolerated
Encourage incentive spirometer
Amiodarone
Will need LifeVest prior to discharge
Maintain SpO2 >90-94%
Postoperative management as per cardiothoracic surgery
Defer starting BB to cardiology
Patient is stable for downgrade to CVICU�telemetry status. No additional Diesel Engine Fitter/Pulmonary recommendations at this time - we will now sign off. Please reconsult if there are any additional questions/concerns, or if patient's respiratory status
deteriorates.
Assessment
-
Assessment: 68-year-old male non-smoker with a past medical history of MM s/p SCT (2015) on Revlimid maintenance therapy, history of trigeminy, and severe MR who presents with elective mitral valve repair. Patient known to the cardiothoracic
surgery service with last visit on 03/06/[address] Ernst. Patient has a history of nonrheumatic mitral valve regurgitation. 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
eccentric severe MR. His LVEF was 65% with normal RV size and function. He feels fatigue with reduced stamina and tachycardic with exertion. He underwent left heart catheterization on 03/18/2024 showing normal coronary arteries. Surgical
intervention with mitral valve surgery were discussed and he agreed to a mitral valve repair. Today he underwent right minithoracotomy with radical mitral valve repair and pneumolysis of intrathoracic adhesions of the right lower lung to the
anterior and diaphragmatic surface. There were no complications and he was transferred to the CVICU for postoperative care with sales representative business courses/pulmonary services consulted for additional management/recommendations.
Chronic conditions PRINTING SUPPLIES SALES REPRESENTATIVE: Severe mitral regurgitation, history of palpitations, multiple myeloma s/p stem cell transplant (2016) on Revlimid, neuropathy, benign ventricular ectopy/trigeminy
Impression:
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
#In-hospital cardiac arrest (04/23/2024 likely due to A-ew-Q-phenomenon from PVC) with ROSC s/p shock x3, lidocaine + epi x1mg and started on amio gtt
#Acute on chronic anemia (Hb was approximately 12 between January - March 2024)
#Acute thrombocytopenia
#History of MM s/p SCT (2015)
#Neuropathy
#History of ventricular ectopy with trigeminy
Plan:
Patient had already been extubated in the OR on 04/23, and was doing well on simple facemask at 8 L/min
- He unfortunately suffered an in-hospital cardiac arrest on evening of 04/23, with ACLS started and he required shock x 3, lidocaine + epinephrine x 1 mg. ROSC obtained at approximately 1624 and he was started on amiodarone drip. The patient
eventually woke up, followed commands and he was extubated on the evening of 04/23
- Had brief episodes of NSVT overnight s/p cardiac arrest --> changed from amio gtt to PO amio BID; will need lifevest with possible AICD as an outpatient; defer BB to cardiology
- Keep SpO2 >90-94%
prn nebulized bronchodilators - not currently bronchospastic
Encourage IS use 10x per hour for at least 4 hrs a day
Maintain MAP>65
Replete electrolytes with K>4, Mg>2
Monitor chest tube output (right pleural x1)
Monitor hemoglobin
Monitor platelet count and coags
Transfuse blood products as needed to maintain Hb>7g/dL, plt>50k (given post-operative status)
CT surgery managing chest tube
Monitor blood sugar to maintain euglycemia with goal BG 140-180
ISS to maintain BG goal as above
Aspiration precautions
DVT prophylaxis
Early nutrition
Early mobilization
Patient is stable for downgrade to CVICU�telemetry status. No additional Diesel Engine Fitter/Pulmonary recommendations at this time - we will now sign off. Thank you for allowing us to be involved in the care of this patient. Please reconsult if there
are any additional questions/concerns, or if patient's respiratory status deteriorates.
Total time spent today was 56 minutes for this encounter. Time includes reviewing laboratory test/imaging results, reviewing pertinent medical records, obtaining and reviewing medical history, performing an appropriate exam, ordering medications,
tests and procedures. Time also includes documentation of this encounter, coordinating patient care and communicating with other healthcare professionals. Total time does not include separately billed tests performed on this date of service.
Subjective Dataa
Subjective Data
Date of Service:
Date of Service: April 24, 2024
Chief Complaint: Diesel Engine Fitter Follow Up
Subjective:
Patient was seen and evaluated this morning. Patient's , Jessica, as well as children, Barrett -son, and Lynette - daughter, all at bedside and all questions were answered. He feels well, with some substernal chest pain from CPR yesterday. The chest
pain causes SOB but he is breathing comfortably at rest and is currently on room air. Heart rate 71 and BP 107/70. He denies ALEJANDRE, abdominal pain, nausea, vomiting, fevers or chills.
He suffered a cardiac arrest yesterday evening, suspected to be R-on-T phenomenon. CPR/ACLS performed and he required 3 shocks with lidocaine and 1 mg epinephrine. Started on amiodarone afterwards, and then he eventually woke up and able to follow
commands. He was extubated yesterday evening.
Review of Systems
General: Other (Negative unless mentioned above)
Objective Data
Data Reviewed
Vital Signs / I&O / Oxygen:
Vital Signs
Temp Pulse Resp BP Pulse Ox
98.0 F 70 18 112/74 99
04/24/24 09:00 04/24/24 09:30 04/24/24 09:30 04/24/24 08:00 04/24/24 09:30
Intake and Output
04/23/24 04/24/24 04/25/24
06:59 06:59 06:59
Intake Total 2252.5 / 2304.0 152.5 / 152.5
Output Total 1350 / 1425 120 / 120
Balance 902.5 / 879.0 32.5 / 32.5
SaO2 [SIMV] 100
SaO2 [A/C] 99
SaO2 99
Nasal Cannula flow liters per 2
minute
Physical Exam
General: Respiratory Distress (negative), Comfortable, Pain (substernal chest from recent CPR), Chills (negative) and Sweats (negative)
HEENT: Normocephalic, Anicteric and Other (R-IJ cordis)
Cardiovascular: S1-S2 and Peripheral Edema (negative)
Respiratory: Wheeze (negative), Crackles (negative), Rhonchi (negative), Non-Labored Respirations and Chest Tube (right pleural: no air leak on -[id number] suction)
GI: Soft, Non Distended, Non Tender and Normal Bowel Sounds
Neurology: AO x 3 and Tremors (negative)
Skin: Warm, Dry, Cyanosis (negative) and Jaundice (negative)
Labs/Micro/Reports
Lab Data
04/24/24 03:49
04/24/24 03:49
Laboratory Results
04/23/24 04/23/24 04/23/24
12:49 16:29 16:34
PT 17.2 H 15.2 H
INR 1.37 1.17
APTT 35.2 H 28.8
pH 7.31 L 7.34 L
pCO2 44 41
pO2 159 H 238 H
HCO3 22.2 22.1
O2 Delivery Level Not Reportable
04/23/24 04/23/24 04/23/24
18:06 19:02 21:29
PT
INR
APTT
pH 7.51 H 7.40 Cancelled
pCO2 32 L 41 Cancelled
pO2 143 H 146 H Cancelled
HCO3 25.5 25.4 Cancelled
O2 Delivery Level Cancelled
[2024-04-24 08:28] LABS: Glucose - Point of Care 98 mg/dl (70-99)
[2024-04-24] MEDS: NEURONTIN 100 MG PO ×3 (08:31→19:42)
[2024-04-24] MEDS: SENOKOT-S 1 TABLET PO ×2 (08:31→19:42)
[2024-04-24] MEDS: PROTONIX 40 MG PO (08:31)
[2024-04-24] MEDS: LOW STRENGTH ASPIRIN 81 MG PO (08:31)
[2024-04-24] MEDS: LIDOCAINE 4% PATCH 1 PATCH TOPICAL (08:31)
[2024-04-24] MEDS: BACTROBAN 2% OINTMENT 1 APPLIC NASAL ×2 (08:31→19:44)
--- NOTE | 2024-04-24 08:40 | PTCARENOTE ---
Assumed care of patient at 0700. Pt is awake, alert, and oriented. Pt with complaints of right side and sternal pain, PRN Roxicodone administered. Pt remains SR with HR 70's. BP 110/62 MAP 79, PA 27/12, CVP 12, CO 4.94, CI 2.63, SVR 1117. Epicardial
V wire in place, not currently connected to pacing box. Pulse oximetry 98% on room air. Right pleural chest tube in place draining serosanguineous drainage, no sign of air leak or crepitus. Pt tolerating PO medication and sips of water. George
catheter in place draining yellow urine. Right lateral chest incision, right chest incision and right groin incision approximated and WAYNE. Right IJ cordis and swan in place at 45cm. Pt currently resting comfortably in bed.
[2024-04-24] MEDS: PACERONE 200 MG PO ×2 (08:47→19:43)
--- NOTE | 2024-04-24 09:00 | PTCARENOTE ---
George catheter removed at 0900, pt is due to void by 1500.
[2024-04-24 09:28] LABS: Glucose - Point of Care 94 mg/dl (70-99)
[2024-04-24 11:15] LABS: Glucose - Point of Care 119 mg/dl (70-99)
[2024-04-24] MEDS: REGLAN 10 MG IV (11:26)
--- NOTE | 2024-04-24 12:45 | PTCARENOTE ---
Dobutamine gtt turned off at 0745. Pt remains SR with HR 68. BP 119/68 MAP 85. PA 29/15, CVP 14. CO 3.85, SI 2.05, SVR 1495. Pulse oximetry 95% on room air. Pt de-lined per order. Assisted pt OOB to chair, tolerated well.
[2024-04-24] MEDS: NSS IV (12:47)
--- NOTE | 2024-04-24 12:47 | W.PN.CARD.SR ---
Sheath/IABP Sheath Removal
Sheath Removal
Left Arterial Brachial:
Site appearance prior to sheath removal: Intact
Sheath removed by:: Physician curriculum assistant principal
Name of associate removing sheath: Dipti Vazquez PA-C
Time of sheath removal: 11:52
Time hemostasis achieved: 11:57
Site appearance post sheath removal: Intact
Method of Hemostasis Post Sheath Removal: Manual Pressure
Dressing dry and intact?: Yes
[2024-04-24 13:23] LABS: Glucose - Point of Care 119 mg/dl (70-99)
--- NOTE | 2024-04-24 15:00 | CM ---
CM following for DC planning needs.
Reviewed initial assessment. PT. resides w/ spouse in a private, 2 story home. He is functionally indep. at baseline w/ ADLs, mobility without the use of any assisted device.
Anticipate DC to home once medically stable w/ CT Transitional Care RN.
CM to follow.
[2024-04-24] MEDS: FERRLECIT 110 MG IV (15:28)
--- NOTE | 2024-04-24 16:10 | PTCARENOTE ---
Pt remains OOB in chair. SR HR 60's. Pt with occasional PVC's. BP 91/61 MAP 71. Pulse oximetry 97% on room air. Pt able to void dark kaley urine. Insulin gtt off per order.
[2024-04-24] MEDS: NOVOLOG FLEXPEN-MODERATE RESISTANCE 1 UNITS SC (17:54)
[2024-04-24 17:58] LABS: Glucose - Point of Care 162 mg/dl (70-99)
[2024-04-25] VITALS (23 sets, daily range): BP systolic 81–125; BP diastolic 61–83; PULSE 65; O2SAT 97–99; BMI 21.0
--- NOTE | 2024-04-25 | PTCARENOTE ---
salvatore 5 given for pain, no other change in assessment .
[2024-04-25] MEDS: ROXICODONE 5 MG PO ×2 (00:23→23:57)
[2024-04-25 04:36] LABS: Hematocrit 25.3 % (39.0-52.0); Hemoglobin 8.8 g/dL (13.0-18.0); Mean Corp Hgb Conc. 34.8 g/dL (33.0-37.0); Mean Corpuscular Hgb 36.2 pg (27.0-31.0); Mean Corpuscular Volume 104.1 fL (80.0-94.0); Red Blood Cell Count 2.43 10^6/uL (4.70-6.10); Red Cell Dist. Width 14.7 % (11.5-14.5); White Blood Cell Count 6.4 10^3/uL (4.8-10.8)
[2024-04-25 04:50] LABS: Blood Urea Nitrogen 51 mg/dl (9-20); Calcium 8.3 mg/dl (8.4-10.2); Carbon Dioxide 29 mmol/L (22-30); Chloride 104 mmol/L (98-107); Estimated Creatinine Clearance 51 ml/min; Glucose 131 mg/dl (70-99); Magnesium 2.7 mg/dl (1.6-2.3); Potassium 4.2 mmol/L (3.5-5.1); Sodium 138 mmol/L (135-145); eGFR 55.09
[2024-04-25 05:37] LABS: Platelet Count 96 10^3/uL (130-400)
--- NOTE | 2024-04-25 05:52 | W.PN.CT ---
Today's Communication / Plan
-
-pod #2
-no significant issues overnight
-nsr 60s, 3-4 beat runs of PVCs overnight
-drips: none
-delineDoris perry out
-on Amiodarone po 200 bid. Lopressor on hold d/t bradycardia earlier
-follow K and Mg
-Cr is trending up - 1.4 today (1.1-1.2 postop and 0.9 preop)- follow
-platelets 96K today (102K on 04/24 and 110 on 04/23)- follow
-CT output: R pleur 30/160 in 06/04 hrs
-maintain pw (VVI 30 backup), Cordis
-plans for Echo on 04/26 (ordered)
-encourage IS, OOB
Assessment / Plan
-
Assessment:
S/P Right mini thoracotomy with right femoral artery and vein cannulation under ROSY guidance/Radical mitral valve repair (38 mm band annuloplasty, 5 pairs of CV 4 [place]-Michael with 3 pairs going to the posterior leaflet in 2 pairs to the anterior
leaflet, triangular resection of the flail segment and primary closure)/Pneumolysis of intrathoracic adhesions of right lower lung to the anterior and diaphragmatic surface, by Dr. Ernst, 04/23/24, pod#2
-Severe mitral valve degeneration, myxomatous and degenerative mitral valve disease, type II pathology with flail/torn cords at the P2 P1 interface resulting in severe insufficiency
-Mild TR
-LVEF 60% per intraop ROSY
-Multiple myeloma (with neutropenia/anemia) S/P stem cell transplant 2016, on Revlimid
-Fatigue
-Ventricular ectopy/trigeminy
-Palpitations
-Neuropathy
-Anaphylaxis to bee venom
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
-Acute postop v-fib arrest S/P CPR (chest compressions, shock x 3, and meds, coded x ~10 min before achieving ROSC)
-Acute postop frequent PVC's/NSVT
-Acute postop 2:1 AV block
-Acute postop cardiogenic shock (CI 1.38), S/P dobutamine gtt
-Acute postop bradycardia, likely d/t Amiodarone gtt and bolus
-Acute postop blood loss/Anemia on chronic anemia (stable without PRBCs)
-Acute postop atelectasis
-Acute postop hypovolemia with subsequent hypervolemia
-JORDEN
Discussed patient care with: Nursing and Care Team
Subjective
Procedure
S/P Right mini thoracotomy with right femoral artery and vein cannulation under ROSY guidance/Radical mitral valve repair (38 mm band annuloplasty, 5 pairs of CV 4 [place] with 3 pairs going to the posterior leaflet in 2 pairs to the anterior
leaflet, triangular resection of the flail segment and primary closure)/Pneumolysis of intrathoracic adhesions of right lower lung to the anterior and diaphragmatic surface, by Dr. Ernst, 04/23/24
-
Date of Service: April 24, 2024
Objective Data
-
Lab Results
04/24/24 03:49
04/24/24 03:49
PT 15.2 Sec (11.4-14.6) H 04/23/24 16:29
INR 1.17 04/23/24 16:29
APTT 28.8 Sec (23.4-35.0) 04/23/24 16:29
Vital Signs
Vital Signs
Temp Pulse Resp BP Pulse Ox
97.9 F 66 16 101/42 97
04/24/24 20:00 04/24/24 20:30 04/24/24 20:00 04/24/24 19:31 04/24/24 20:00
CT Intake/Output/Weight
11/13/24 11/13/24 11/14/24
06:59 18:59 06:59
Intake Total 437.9 / 2304.0 295.3 / 315.3 20 / 315.3
Output Total 675 / 1425 365 / 475 110 / 475
Balance -237.1 / 879.0 -69.7 / -159.7 -90 / -159.7
SaO2: 97
Physical Exam
-
General: Awake, Oriented and AOx3
Cardiovascular: Regular rate & rhythm, +rub, No Murmurs and No Gallop
Respiratory: Decreased Breath Sounds (at bases, otherwise clear)
Sternum: Stable
Incision: Clean, Dry, Intact and Dressing Intact
Extremities: No Edema b/l
Data Reviewed
-
Lab Results: Results Reviewed
Medications: Active Meds Reviewed
Chest X-Ray: Report Reviewed and Image Reviewed
ECG: Report Reviewed and Image Reviewed
[2024-04-25 07:57] LABS: Glucose - Point of Care 135 mg/dl (70-99)
--- NOTE | 2024-04-25 08:00 | PTCARENOTE ---
Received patient from cage shift manager RN; AAOx3, responds spontaneously to RN and follows commands; VSS; SR with 1st AVB on monitor; Epicardial V-wire insulated and disconnected from temporary pacemaker; DP and radial pulses present; Lungs diminished at
bases; 93-97% on RA; IS 2000 ml; Occasional, moist cough with clear, thin sputum; CTx1 draining bloody drainage - no crepitus, tidaling, or air leak noted; Large amount of bloody drainage noted since start of shift and CVPA Alexx LIvette notified and
aware - CT site examined and redressed, output monitored closely, and 15 minute BP's obtained for patient with no further orders at this time; Complaints of poor appetite but ate 100% breakfast; Urinating small amounts of clear, kaley urine in
urinal; Surgical incisions intact; Right IJ Cordis with KVO infusing; PIV x1; See nursing documentation for further information.
[2024-04-25] MEDS: PROTONIX 40 MG PO (08:06)
[2024-04-25] MEDS: NEURONTIN 100 MG PO ×3 (08:06→21:38)
[2024-04-25] MEDS: LOW STRENGTH ASPIRIN 81 MG PO (08:06)
[2024-04-25] MEDS: SENOKOT-S 1 TABLET PO ×2 (08:06→20:21)
[2024-04-25] MEDS: TYLENOL 1000 MG PO ×3 (08:06→21:38)
[2024-04-25] MEDS: BACTROBAN 2% OINTMENT 1 APPLIC NASAL ×2 (08:07→20:21)
[2024-04-25] MEDS: PACERONE 200 MG PO ×2 (08:07→20:21)
[2024-04-25] MEDS: LIDOCAINE 4% PATCH 1 PATCH TOPICAL (08:07)
[2024-04-25] MEDS: NOVOLOG FLEXPEN-MODERATE RESISTANCE SC ×3 (08:09→17:30)
--- NOTE | 2024-04-25 11:22 | W.PN.CARDCBS ---
Addendum entered and electronically signed by Peng Eng MD 04/25/24 13:39:
I saw and examined the patient.
The Power Project Manager's note was reviewed and I agree with the note.
Comment:
GEN: No distress, awake, Ox3
HEENT: supple, anicteric, mmm
LUNGS: scatt rhonchi, +CT
CV: Reg, S1/S2, no murmur
ABD: soft, BS+, NT/ND
EXT: No edema
NEURO: Gross non-focal
SKIN: No rash
Plan:
Overall doing well and no further significant arrhythmias. Agree with plan for LifeVest.
Continue amiodarone.
Blood pressure remains marginal. Hopefully continues to improve we can restart metoprolol.
Hemoglobin at 8.8. Continue to follow.
Creatinine up to 1.4.
Original Note:
Today's Communication / Plan
-
continue post op care
patient will require lifevest upon DC given VT/VF arrest in the post operative setting. patient agreeable. will arrange
Impression / Plan
-
Primary Dairy Consultant: Dr. Eng
Assessment:
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
2:1 AV block by post op EKG
Vfib arrest requiring CPR, shock x3, lidocaine, epi with ROSC 04/23/24
Post op anemia/thrombocytopenia
MM s/p stem cell transplant 2016, on chronic revlimid therapy
PVCs/ventricular ectopy
ECHO 12/28/23: EF 65-70%, mild cLVH, GLS -21.5%, mildly dilated RA, bileaflet MV prolapse posterior>anterior, severe eccentric MR
Plan:
-s/p radical MV repair 04/23/24 for severe MR with bileaflet prolapse
-initially had some 2:1 av block post op
-then had Vfib arrest ~1620 04/23 requiring CPR, shock x3, lidocaine, epi with ROSC. s/p urgent bedside ROSY without structural issues of mitral valve or significant wall motion abnormalities. code felt to be due to R on T.
-started on IV amio gtt, now on po amio. BB on hold due to bradycardia
-in SR with several 3-4 beat runs of NSVT on review of tele overnight. follow K/mag
-patient now agreeable for lifevest
-suspect dry today with Cr up to 1.4 holding diuretics
-repeat echo in AM
-continue post op care
-d/w nursing, CT surgical MAJOR NG
Progress Note - Dairy Consultant
Subjective
Date of Service: April 25, 2024
reports feeling much improved from yesterday
Objective
Labs:
04/25/24 03:59
04/25/24 03:59
Labs
Hgb 8.8 g/dL (13.0-18.0) L 04/25/24 03:59
Hct 25.3 % (39.0-52.0) L 04/25/24 03:59
Plt Count 96 10^3/uL (130-400) L 04/25/24 03:59
PT 15.2 Sec (11.4-14.6) H 04/23/24 16:29
INR 1.17 04/23/24 16:29
APTT 28.8 Sec (23.4-35.0) 04/23/24 16:29
Sodium 138 mmol/L (135-145) 04/25/24 03:59
Potassium 4.2 mmol/L (3.5-5.1) 04/25/24 03:59
BUN 51 mg/dl (9-20) H 04/25/24 03:59
Creatinine 1.4 mg/dL (0.7-1.3) H 04/25/24 03:59
Glucose 131 mg/dl (70-99) H 04/25/24 03:59
Vital Signs and I&O:
Vital Signs
Temp Pulse Resp BP Pulse Ox
98.9 F 72 16 93/66 96
04/25/24 08:02 04/25/24 09:04 04/25/24 08:02 04/25/24 09:04 04/25/24 08:02
Vital Signs
Temp Pulse Resp BP Pulse Ox
98.9 F 72 16 96
04/25/24 08:02 04/25/24 09:04 04/25/24 08:02 04/25/24 09:04 04/25/24 08:02
Intake & Output
04/23/24 04/24/24 04/25/24 04/26/24
07:59 07:59 07:59 07:59
Intake Total 2304.0 / 2354.5 343.8 / 623.8 280 / 280
Output Total 1425 / 1470 520 / 830 465 / 465
Balance 879.0 / 884.5 -176.2 / -206.2 -185 / -185
Physical Exam
Physical Exam
GEN: No distress, awake, alert, oriented x3. sitting in chair
HEENT: supple, anicteric, mmm, eomi
LUNGS: CTA B/L, no wheezes/rales
CV: Reg, S1/S2, no murmur
ABD: soft, BS+, NT/ND
EXT: No cyanosis, clubbing, edema
NEURO: Gross non-focal
SKIN: Warm, pink, dry. No rash. CT in place
[2024-04-25] MEDS: NOVOLOG FLEXPEN-MODERATE RESISTANCE 1 UNITS SC (11:47)
[2024-04-25] MEDS: NSS IV (11:49)
[2024-04-25 11:50] LABS: Glucose - Point of Care 164 mg/dl (70-99)
--- NOTE | 2024-04-25 12:00 | PTCARENOTE ---
Patient dizzy and lightheaded working with cardiac rehab earlier - BP's low and patient encouraged to hydrate; Will reattempt to ambulate patient when patient able to tolerate
--- NOTE | 2024-04-25 12:59 | CM ---
Addendum entered by HIMANSHU Chambers 04/25/24 14:32:
Documentation and order obtained for LifeVest; faxed to [facility].
Will await approval and time/date for fitting.
Original Note:
CM following for DC planning needs.
Met w/ patient, spouse at bedside.
Pt. reports that he is feeling well.
We discussed DC plans for home w/ CT Transitional Care RN + LifeVest. Additionally, reviewed post op MD appointments.
Will await documentation to send to [facility].
Will cont. to follow.
[2024-04-25] MEDS: FERRLECIT 110 MG IV (13:12)
--- NOTE | 2024-04-25 16:20 | PTCARENOTE ---
Patient able to ambulate in room with RN - dizzy initially but able to tolerate; Patient only voiding small amounts of kaley urine in spite of PO hydration and bladder scanned for PVR of 0 ml - CVHERNANDEZ Guajardo notified and aware with no further orders
at this time due to BP; Cordis and CT site discontinued with no complications - VSS throughout and no bleeding noted at sites at this time
[2024-04-25 17:10] LABS: Glucose - Point of Care 143 mg/dl (70-99)
--- NOTE | 2024-04-25 20:00 | PTCARENOTE ---
Received pt from [employer]. Walking rounds completed. Pt assessment completed in bed. Pt is AAOx4. No neuro deficits noted. VSS, NSR on monitor HR 70's, B/P: 125/81; Epicardial V-wire insulated and disconnected from temporary pacemaker; Pulses
palpable; Lungs clear, diminished at bases; 100% on RA; IS 1500ml, Occasional cough with clear, thin sputum. BS normal, abdomen soft, non-tender to touch. Pt urinating small amounts of clear, kaley urine in urinal; Surgical incisions intact. R 18g
PVA intact, no redness or edema noted. Discussed plan of care with pt. Pt agrees with plan.
[2024-04-25 20:50] LABS: Ionized Calcium 1.16 mMOL/L (1.15-1.33)
--- NOTE | 2024-04-25 21:00 | PTCARENOTE ---
Pt noted to be in junctional rhythm with PVC's on monitor. CTPA Tslina aware. Labs ordered and sent. EKG obtained. Calcium gluconate and potassium ordered. (see MAR) pt resting in bed.
[2024-04-25 21:09] LABS: Blood Urea Nitrogen 41 mg/dl (9-20); Calcium 8.2 mg/dl (8.4-10.2); Carbon Dioxide 28 mmol/L (22-30); Chloride 100 mmol/L (98-107); Estimated Creatinine Clearance 59 ml/min; Glucose 126 mg/dl (70-99); Magnesium 2.6 mg/dl (1.6-2.3); Potassium 3.8 mmol/L (3.5-5.1); Sodium 136 mmol/L (135-145); eGFR > 60.00
[2024-04-25] MEDS: KCL 40 MEQ PO (21:38)
[2024-04-25] MEDS: ROXICODONE 2.5 MG PO (21:38)
[2024-04-25] MEDS: CALCIUM GLUCONATE 130 MG IV (21:44)
[2024-04-25 22:19] LABS: Glucose - Point of Care 111 mg/dl (70-99)
[2024-04-26] VITALS (14 sets, daily range): BP systolic 111–128; BP diastolic 62–84; PULSE 88; O2SAT 99; BMI 21.5
--- NOTE | 2024-04-26 00:25 | PTCARENOTE ---
VSS. pt in junctional rhythm with occasional PVC's on monitor. CTPA Tslina aware. PM care provided. Pt resting in bed. Will continue to assess pt needs.
--- NOTE | 2024-04-26 04:28 | PTCARENOTE ---
VSS. Pt in Junctional rhythm with occassional pvc's on monitor. HR 72, B/P 99/83. Morning labs obtained and sent. Pt resting in bed. Will continue to monitor pt needs.
[2024-04-26 05:09] LABS: Hematocrit 26.5 % (39.0-52.0); Hemoglobin 9.3 g/dL (13.0-18.0); Mean Corp Hgb Conc. 35.1 g/dL (33.0-37.0); Mean Corpuscular Hgb 35.8 pg (27.0-31.0); Mean Corpuscular Volume 101.9 fL (80.0-94.0); Mean Platelet Volume 10.3 fL (7.4-10.4); Platelet Count 95 10^3/uL (130-400); Red Cell Dist. Width 14.4 % (11.5-14.5); White Blood Cell Count 5.5 10^3/uL (4.8-10.8)
[2024-04-26] MEDS: TYLENOL 1000 MG PO ×2 (05:20→20:34)
[2024-04-26 05:32] LABS: Blood Urea Nitrogen 37 mg/dl (9-20); Calcium 8.7 mg/dl (8.4-10.2); Carbon Dioxide 28 mmol/L (22-30); Chloride 102 mmol/L (98-107); Estimated Creatinine Clearance 73 ml/min; Glucose 119 mg/dl (70-99); Magnesium 2.4 mg/dl (1.6-2.3); Potassium 4.3 mmol/L (3.5-5.1); Sodium 136 mmol/L (135-145); eGFR > 60.00
--- NOTE | 2024-04-26 06:07 | W.PN.CT ---
Addendum entered and electronically signed by Cordell Abdi MD 04/26/24 08:08:
I saw and examined the patient.
The PA's note was reviewed and I agree with the note.
Comment:
POD#3 - no major overnight events. Continue junctional vs NSR w/ 1AVB and frequent PVCs
SBP 96s555 in general - hold on BB for now
Echocardiogram today
Arrangements for lifevest
OOB/IS/ambulate
D/C planning for hopefully tomorrow
Original Note:
Today's Communication / Plan
-
-pod #3
-no significant issues overnight
-? rhythm overnight: accelerated junctional 70s vs nsr with long 1st degree AVB
-on Amiodarone po 200 bid. Lopressor on hold d/t bradycardia earlier and hypotension
-noted Cardiology recommendation for LifeVest
-Cr is at baseline - 1.0 today (1.4 on 04/25 and 0.9-1 preop)- follow
-platelets stable - 95 today (96K <--102K <--110)- follow
-maintain pw (V- wires only)
-Echo today
-encourage IS, OOB
Assessment / Plan
-
Assessment:
S/P Right mini thoracotomy with right femoral artery and vein cannulation under ROSY guidance/Radical mitral valve repair (38 mm band annuloplasty, 5 pairs of CV 4 [place]-Michael with 3 pairs going to the posterior leaflet in 2 pairs to the anterior
leaflet, triangular resection of the flail segment and primary closure)/Pneumolysis of intrathoracic adhesions of right lower lung to the anterior and diaphragmatic surface, by Dr. Ernst, 04/23/24, pod#3
-Severe mitral valve degeneration, myxomatous and degenerative mitral valve disease, type II pathology with flail/torn cords at the P2 P1 interface resulting in severe insufficiency
-Mild TR
-LVEF 60% per intraop ROSY
-Multiple myeloma (with neutropenia/anemia) S/P stem cell transplant 2016, on Revlimid
-Fatigue
-Ventricular ectopy/trigeminy
-Palpitations
-Neuropathy
-Anaphylaxis to bee venom
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
-Acute postop v-fib arrest S/P CPR (chest compressions, shock x 3, and meds, coded x ~10 min before achieving ROSC)
-Acute postop frequent PVC's/NSVT
-Acute postop 2:1 AV block
-Acute postop cardiogenic shock (CI 1.38), S/P dobutamine gtt
-Acute postop bradycardia, likely d/t Amiodarone gtt and bolus
-Acute postop blood loss/Anemia on chronic anemia (stable without PRBCs)
-Acute postop atelectasis
-Acute postop hypovolemia with subsequent hypervolemia
-JORDEN
Discussed patient care with: Nursing and Care Team
Subjective
Procedure
S/P Right mini thoracotomy with right femoral artery and vein cannulation under ROSY guidance/Radical mitral valve repair (38 mm band annuloplasty, 5 pairs of CV 4 [place]-Michael with 3 pairs going to the posterior leaflet in 2 pairs to the anterior
leaflet, triangular resection of the flail segment and primary closure)/Pneumolysis of intrathoracic adhesions of right lower lung to the anterior and diaphragmatic surface, by Dr. Ernst, 04/23/24
-
Date of Service: April 26, 2024
Objective Data
-
PT 15.2 Sec (11.4-14.6) H 04/23/24 16:29
INR 1.17 04/23/24 16:29
APTT 28.8 Sec (23.4-35.0) 04/23/24 16:29
Vital Signs
Vital Signs
Temp Pulse Resp BP Pulse Ox
98.1 F 74 18 99/83 95
04/25/24 22:53 04/25/24 23:00 04/25/24 22:53 04/25/24 22:53 04/25/24 22:53
CT Intake/Output/Weight
04/25/24 04/25/24 04/26/24
06:59 18:59 06:59
Intake Total 100 / 395.3 1960 / 1960
Output Total 230 / 595 900 / 1200 300 / 1200
Balance -130 / -199.7 1060 / 760 -300 / 760
SaO2: 95
Physical Exam
-
General: Awake, Oriented and AOx3
Cardiovascular: Regular rate & rhythm, +rub, No Murmurs and No Gallop
Respiratory: Decreased Breath Sounds (at bases, otherwise clear)
Sternum: Stable
Incision: Clean, Dry, Intact and Dressing Intact
Extremities: No Edema b/l
Data Reviewed
-
Lab Results: Results Reviewed
Medications: Active Meds Reviewed
Chest X-Ray: Report Reviewed and Image Reviewed
ECG: Report Reviewed and Image Reviewed
--- NOTE | 2024-04-26 07:00 | PTCARENOTE ---
Bedside walking rounds report received. Patient is oob in chair on room air and tolerating well. Neuro intact. Accel junctional rhythm: v wire is insulated and [employer] temp pacing box close in room and easily accessible. Patient is for life vest
fitting today. Denies pain. See flowrecord for remaining assessments.
[2024-04-26] MEDS: NOVOLOG FLEXPEN-MODERATE RESISTANCE SC (08:07)
[2024-04-26 08:09] LABS: Glucose - Point of Care 131 mg/dl (70-99)
[2024-04-26] MEDS: BACTROBAN 2% OINTMENT 1 APPLIC NASAL ×2 (08:59→20:33)
[2024-04-26] MEDS: LIDOCAINE 4% PATCH 1 PATCH TOPICAL (08:59)
[2024-04-26] MEDS: PROTONIX 40 MG PO (09:00)
[2024-04-26] MEDS: SENOKOT-S 1 TABLET PO ×2 (09:00→20:34)
[2024-04-26] MEDS: LOW STRENGTH ASPIRIN 81 MG PO (09:00)
[2024-04-26] MEDS: NEURONTIN 100 MG PO ×2 (09:00→20:34)
[2024-04-26] MEDS: PACERONE 200 MG PO ×2 (09:00→20:34)
[2024-04-26 11:02] LABS: B.E. - POC -1.7 mmol/L; Glucose - POC 113 mg/dl (70-99); HCO3 - POC 23 mmol/L (21-28); Hematocrit - POC 27 % PCV (42-52); Hemodilution- POC Yes; Ionized Calcium - POC 1.44 mmol/L (1.15-1.33); O2 Saturation %Calculated-POC 99.1 % (94-98); PCO2 - POC 39 mmHg (35-48); PO2 - POC 141 mmHg (83-108); POC Comment POST; Potassium - POC 3.8 mmol/L (3.5-5.1); Sodium - POC 142 mmol/L (136-145); pH - POC 7.39 (7.35-7.45)
[2024-04-26] MEDS: NSS IV (11:45)
--- NOTE | 2024-04-26 11:50 | CM ---
CM following for DC planning needs.
Met w/ patient and spouse at bedside.
LifeVest has been approved and fitted this AM. Pt. has no questions or concerns regarding this.
Reviewed post op MD appointments, Cardiac Rehab and visit from CT Transitional Care RN.
Plan for home w/ CT Transitional Care RN.
No other needs noted.
--- NOTE | 2024-04-26 12:00 | PTCARENOTE ---
No acute changes. Remains in accel junctional with some p waves visible after t wave: long 1st degree avb at times: PA aware. Will have cardilology re evaluate ekg and obtain another 12lead this afternoon.
[2024-04-26] MEDS: LASIX 20 MG IV (13:54)
[2024-04-26] MEDS: TOPROL XL 12.5 MG PO (13:54)
[2024-04-26] MEDS: FERRLECIT 110 MG IV (13:54)
[2024-04-26] MEDS: TYLENOL PO (13:55)
--- NOTE | 2024-04-26 14:03 | W.PN.CARDCBS ---
Addendum entered and electronically signed by Sergey Marroquin MD 04/26/24 14:28:
I saw and examined the patient.
The MUSIC COMPOSER or PA's note was reviewed and I agree with the note.
Comment: General: Well developed, well nourished in NAD.
Neck: Supple, no JVD, HJR, carotids +2 B/L, no bruits bilaterally.
Heart: Non displaced PMI, RRR, no murmurs, No S3, S4, no rubs.
Lungs: Scattered rhonchi
Sternal dressings noted
Extremities: No clubbing, cyanosis or edema bilaterally.
Neuro: Grossly nonfocal, awake, alert and oriented x3.
Echocardiogram okay. Stable cardiology status. Fitted for LifeVest today. Remains in sinus rhythm
Original Note:
Today's Communication / Plan
-
continue post op care
start BB. follow rhythm closely
echo pending
fitted for lifevest for DC
Impression / Plan
-
Primary Auto Rental Clerk: Dr. Eng
Assessment:
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
2:1 AV block by post op EKG
Vfib arrest requiring CPR, shock x3, lidocaine, epi with ROSC 04/23/24
Post op anemia/thrombocytopenia
MM s/p stem cell transplant 2016, on chronic revlimid therapy
PVCs/ventricular ectopy
ECHO 12/28/23: EF 65-70%, mild cLVH, GLS -21.5%, mildly dilated RA, bileaflet MV prolapse posterior>anterior, severe eccentric MR
Plan:
-s/p radical MV repair 04/23/24 for severe MR with bileaflet prolapse
-initially had some 2:1 av block post op
-then had Vfib arrest ~1620 04/23 requiring CPR, shock x3, lidocaine, epi with ROSC. s/p urgent bedside ROSY without structural issues of mitral valve or significant wall motion abnormalities. code felt to be due to R on T.
-started on IV amio gtt, now on po amio. remains in SR with long 1st degree and occasional PVCs, couplets on review of tele overnight. d/w CT surgery. will plan to start low dose BB and follow closely on tele.
-he has been fitted for lifevest
-Cr improved to 1.0 today
-repeat echo today pending
-continue post op care
-for possible DC in AM
-d/w nursing, patient and family at bedside
Progress Note - Auto Rental Clerk
Subjective
Date of Service: April 26, 2024
reports feeling better today than yesterday. remains with some fatigue
Objective
Labs:
04/26/24 04:40
04/26/24 04:40
Labs
Hgb 9.3 g/dL (13.0-18.0) L 04/26/24 04:40
Hct 26.5 % (39.0-52.0) L 04/26/24 04:40
Plt Count 95 10^3/uL (130-400) L 04/26/24 04:40
PT 15.2 Sec (11.4-14.6) H 04/23/24 16:29
INR 1.17 04/23/24 16:29
APTT 28.8 Sec (23.4-35.0) 04/23/24 16:29
Sodium 136 mmol/L (135-145) 04/26/24 04:40
Potassium 4.3 mmol/L (3.5-5.1) 04/26/24 04:40
BUN 37 mg/dl (9-20) H 04/26/24 04:40
Creatinine 1.0 mg/dL (0.7-1.3) 04/26/24 04:40
Glucose 119 mg/dl (70-99) H 04/26/24 04:40
Vital Signs and I&O:
Vital Signs
Temp Pulse Resp BP Pulse Ox
98 F 79 18 111/62 100
04/26/24 11:43 04/26/24 13:25 04/26/24 11:43 04/26/24 13:25 04/26/24 11:43
Vital Signs
Temp Pulse Resp BP Pulse Ox
98 F 79 18 111/62 100
04/26/24 11:43 04/26/24 13:25 04/26/24 11:43 04/26/24 13:25 04/26/24 11:43
Intake & Output
04/24/24 04/25/24 04/26/24 04/27/24
07:59 07:59 07:59 07:59
Intake Total 2304.0 / 2354.5 343.8 / 623.8 1960 / 2310 350 / 350
Output Total 1425 / 1470 520 / 830 1325 / 1325
Balance 879.0 / 884.5 -176.2 / -206.2 635 / 985 350 / 350
Physical Exam
Physical Exam
GEN: No distress, awake, alert, oriented x3. sitting in chair
HEENT: supple, anicteric, mmm, eomi
LUNGS: CTA B/L, no wheezes/rales
CV: Reg, S1/S2, no murmur
ABD: soft, BS+, NT/ND
EXT: No cyanosis, clubbing, edema
NEURO: Gross non-focal
SKIN: Warm, pink, dry. No rash.
--- NOTE | 2024-04-26 14:38 | W.PN.ANS.POP ---
Anesthesia Post Operative
- Anesthesia Post Op Note
Vital Signs Stable-See Nursing Note: Yes
Airway Patent: Yes
Adequate Pain Control: Yes
Change in Mental Status: No
Current Postoperative Nausea & Vomiting: No
Anesthesia Complications: No
General Anesthetic Recall: No
Unplanned Admission: No
Post Op Hydration Adequate: Yes
--- NOTE | 2024-04-26 16:00 | PTCARENOTE ---
12 lead ekg interpretation by cardiology: junctional rhythm with retrograde p waves so Metoprolol xl will be dc. No acute changes. Patient is ambulating frequently.
[2024-04-26] MEDS: NEURONTIN PO (17:10)
--- NOTE | 2024-04-26 20:30 | PTCARENOTE ---
Patient received OOB in chair watching television. Patient ambulated to bathroom then to bed by self. Steady gait. Patient A+A+Ox3. No neurological deficits noted. LifeVest intact. Room air. SpO2 97%. No c/o SOB. Continues in Accelerated
Junctional Rhythm. Heart rate 80's. No c/o chest pain, pressure or discomfort. Epicardial wires insulated. Normoactive bowel sounds. No BM. Voiding without difficulty. Right anterior/lateral incisions and puncture sites intact. Ecchymosis.
Chest tube dressing intact. Right groin intact. Positive, palpable pulses. Assessment as documented.
--- NOTE | 2024-04-27 00:30 | PTCARENOTE ---
Patient sleeping without difficulty. Assessment/Interventions as documented.
[2024-04-27] MEDS: TYLENOL 650 MG PO ×2 (01:23→08:04)
[2024-04-27] MEDS: FLEXERIL 5 MG PO (01:24)
--- NOTE | 2024-04-27 02:43 | W.PN.CT ---
Addendum entered and electronically signed by Cordell Abdi MD 04/27/24 09:06:
I saw and examined the patient.
The PA's note was reviewed and I agree with the note.
Comment:
D/C home today
No BB per cardiology given accelerated junction
Continue ASA, amio
Check 2-view CXR
Lifevest
Original Note:
Documented by User: Yasmani Moncada PA-C 04/27/24 06:58
Today's Communication / Plan
-
-pod #4
-no issues overnight
-s/p Echo 04/26
-hr 80s overnight -appears junctional, some PVCs. No bart or pauses. Holding BB, continue po Amio bid
-BP improved, no further hypotension
-tolerated 20 iv Lasix on 04/26 (UO 400/2000+ in 12/24 hrs)
-weaned off O2 - pOx 99% RA
-fitted for LifeVest
-follow 2v-CXR
-continue to ambulate
-possible d/c home
Assessment / Plan
-
Assessment:
S/P Right mini thoracotomy with right femoral artery and vein cannulation under ROSY guidance/Radical mitral valve repair (38 mm band annuloplasty, 5 pairs of CV 4 Ogden-Michael with 3 pairs going to the posterior leaflet in 2 pairs to the anterior
leaflet, triangular resection of the flail segment and primary closure)/Pneumolysis of intrathoracic adhesions of right lower lung to the anterior and diaphragmatic surface, by Dr. Ernst, 04/23/24, pod#4
-Severe mitral valve degeneration, myxomatous and degenerative mitral valve disease, type II pathology with flail/torn cords at the P2 P1 interface resulting in severe insufficiency
-Mild TR
-LVEF 60% per intraop ROSY
-Multiple myeloma (with neutropenia/anemia) S/P stem cell transplant 2016, on Revlimid
-Fatigue
-Ventricular ectopy/trigeminy
-Palpitations
-Neuropathy
-Anaphylaxis to bee venom
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
-Acute postop v-fib arrest S/P CPR (chest compressions, shock x 3, and meds, coded x ~10 min before achieving ROSC)
-Acute postop frequent PVC's/NSVT
-Acute postop 2:1 AV block
-Acute postop cardiogenic shock (CI 1.38), S/P dobutamine gtt
-Acute postop bradycardia, likely d/t Amiodarone gtt and bolus
-Acute postop blood loss/Anemia on chronic anemia (stable without PRBCs)
-Acute postop atelectasis
-Acute postop hypovolemia with subsequent hypervolemia
-JORDEN
Echo 04/26/24:
Normal left ventricular chamber size. Normal left ventricular wall thickness. Normal left ventricular systolic function. Left ventricular ejection fraction is 50 to 55%. Diastolic function indeterminate.
S/p Mitral Valve Repair with mean gradient across the mitral valve at 4 mmHg. Mild mitral regurgitation is seen.
Tricuspid valve opens normally. Mild to moderate tricuspid regurgitation.
Estimated pulmonary artery pressure of 36 mmHg assuming a right atrial pressure of 15 mmHg.
Mildly dilated right atrium.
Mildly enlarged right ventricular size with low normal right ventricular systolic function.
Since echocardiogram 12/28/2023, patient is status post mitral valve repair and MR is improved from severe to mild.
Discussed patient care with: Nursing and Care Team
Subjective
Procedure
S/P Right mini thoracotomy with right femoral artery and vein cannulation under ROSY guidance/Radical mitral valve repair (38 mm band annuloplasty, 5 pairs of CV 4 Ogden-Michael with 3 pairs going to the posterior leaflet in 2 pairs to the anterior
leaflet, triangular resection of the flail segment and primary closure)/Pneumolysis of intrathoracic adhesions of right lower lung to the anterior and diaphragmatic surface, by Dr. Ernst, 04/23/24
-
Date of Service: April 27, 2024
Objective Data
-
PT 15.2 Sec (11.4-14.6) H 04/23/24 16:29
INR 1.17 04/23/24 16:29
APTT 28.8 Sec (23.4-35.0) 04/23/24 16:29
Vital Signs
Vital Signs
Temp Pulse Resp BP Pulse Ox
98.0 F 86 16 117/78 99
04/26/24 23:45 04/26/24 23:46 04/26/24 23:45 04/26/24 23:46 04/26/24 23:[address]
CT Intake/Output/Weight
04/26/24 04/26/24 04/27/24
06:59 18:59 06:59
Intake Total 675 / 1155 480 / 1155
Output Total 425 / 1325 1600 / 2000 400 / 2000
Balance -425 / 635 -925 / -845 80 / -845
SaO2: 99
Physical Exam
-
General: Awake and AOx3
Cardiovascular: Regular rate & rhythm, No Murmurs and No Rub
Respiratory: Decreased Breath Sounds
Sternum: Stable
Incision: Dry and Dressing Intact
Extremities: No Edema (2+ DPs b/l)
Data Reviewed
-
Lab Results: Results Reviewed
Medications: Active Meds Reviewed
Chest X-Ray: Report Reviewed and Image Reviewed
ECG: Report Reviewed and Image Reviewed

Documented by User: DAREN Abreu 04/27/24 07:58
Today's Communication / Plan
-
-pod #4
-no issues overnight
-s/p Echo on 04/26 reviewed by both Dina Eng and Sujata, there is NO Trace residual MR
-hr 80s overnight -appears junctional, some PVCs. No bart or pauses. Holding BB, continue po Amio bid
-BP improved, no further hypotension
-tolerated 20 iv Lasix on 04/26 (UO 400/2000+ in 12/24 hrs)
-weaned off O2 - pOx 99% RA
-fitted for LifeVest
-follow 2v-CXR
-continue to ambulate
-possible d/c home
[2024-04-27] MEDS: TYLENOL PO (05:17)
[2024-04-27 05:21] VITALS: BP 119/86
[2024-04-27 05:30] VITALS: BP 119/86
--- NOTE | 2024-04-27 05:30 | SUR.OPER ---
Patient A+A+Ox3. No neurological deficits noted. No c/o pain or discomfort. Ambulates in room and to bathroom by self. Steady gait. LifeVest intact. No c/o chest pain, pressure or discomfort. AM lab work collected and sent. Patient resting
in bed. Assessment/Interventions as documented.
[2024-04-27 05:49] LABS: Hematocrit 26.3 % (39.0-52.0); Hemoglobin 9.1 g/dL (13.0-18.0); Mean Corp Hgb Conc. 34.6 g/dL (33.0-37.0); Mean Corpuscular Hgb 35.7 pg (27.0-31.0); Mean Corpuscular Volume 103.1 fL (80.0-94.0); Mean Platelet Volume 9.8 fL (7.4-10.4); Platelet Count 105 10^3/uL (130-400); Red Blood Cell Count 2.55 10^6/uL (4.70-6.10); Red Cell Dist. Width 14.1 % (11.5-14.5); White Blood Cell Count 4.4 10^3/uL (4.8-10.8)
[2024-04-27 05:58] LABS: Blood Urea Nitrogen 24 mg/dl (9-20); Calcium 8.5 mg/dl (8.4-10.2); Carbon Dioxide 31 mmol/L (22-30); Chloride 102 mmol/L (98-107); Estimated Creatinine Clearance 73 ml/min; Glucose 106 mg/dl (70-99); Magnesium 2.2 mg/dl (1.6-2.3); Potassium 3.8 mmol/L (3.5-5.1); Sodium 138 mmol/L (135-145); eGFR > 60.00
[2024-04-27 07:18] VITALS: BMI 20.8
[2024-04-27] MEDS: LIDOCAINE 4% PATCH TOPICAL (07:30)
[2024-04-27 07:57] VITALS: BP 102/86
[2024-04-27] MEDS: LASIX 20 MG IV (08:03)
[2024-04-27] MEDS: PROTONIX 40 MG PO (08:03)
[2024-04-27] MEDS: KCL 40 MEQ PO (08:03)
[2024-04-27] MEDS: NEURONTIN 100 MG PO (08:04)
[2024-04-27] MEDS: LOW STRENGTH ASPIRIN 81 MG PO (08:04)
[2024-04-27] MEDS: BACTROBAN 2% OINTMENT 1 APPLIC NASAL (08:04)
[2024-04-27] MEDS: PACERONE 200 MG PO (08:04)
[2024-04-27] MEDS: SENOKOT-S 1 TABLET PO (08:04)
[2024-04-27] MEDS: NSS IV (08:13)
--- NOTE | 2024-04-27 08:30 | PTCARENOTE ---
Patient received from shift supervisor resting oob in chair, ambulated room ad shi. VSS - Junctional rhythm determined via cm, SaO2 @ 95% on RA. All procedural sites stable. Epicardial V-wire, insulated. Patient updated to plan of care for the day,
including possible d/c home, in agreement. See work list for full assessment and interventions performed.
[2024-04-27 09:06] VITALS: BP 103/71
[2024-04-27 09:14] VITALS: BP 115/79
[2024-04-27 09:34] VITALS: BP 103/71; BP 115/79; PULSE 91; O2SAT 98; O2SAT 99
--- NOTE | 2024-04-27 10:06 | W.PN.CARDCBS ---
Today's Communication / Plan
-
d/c to home on Lifevest
Impression / Plan
-
Primary Syrup Maker: Dr. Eng
Assessment:
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
2:1 AV block by post op EKG
Vfib arrest requiring CPR, shock x3, lidocaine, epi with ROSC 04/23/24
Accelerated junctional rhythm
Post op anemia/thrombocytopenia
MM s/p stem cell transplant 2016, on chronic revlimid therapy
PVCs/ventricular ectopy
ECHO 12/28/23: EF 65-70%, mild cLVH, GLS -21.5%, mildly dilated RA, bileaflet MV prolapse posterior>anterior, severe eccentric MR
Plan:
Stable cardiology status for discharge on LifeVest
No further ventricular arrhythmias
stable cardiology status for d/c
d/w ct surgery PA
Progress Note - Syrup Maker
Subjective
Date of Service: April 27, 2024
No complaints
Objective
Labs:
04/27/24 05:31
04/27/24 05:31
Labs
Hgb 9.1 g/dL (13.0-18.0) L 04/27/24 05:31
Hct 26.3 % (39.0-52.0) L 04/27/24 05:31
Plt Count 105 10^3/uL (130-400) L 04/27/24 05:31
PT 15.2 Sec (11.4-14.6) H 04/23/24 16:29
INR 1.17 04/23/24 16:29
APTT 28.8 Sec (23.4-35.0) 04/23/24 16:29
Sodium 138 mmol/L (135-145) 04/27/24 05:31
Potassium 3.8 mmol/L (3.5-5.1) 04/27/24 05:31
BUN 24 mg/dl (9-20) H 04/27/24 05:31
Creatinine 1.0 mg/dL (0.7-1.3) 04/27/24 05:31
Glucose 106 mg/dl (70-99) H 04/27/24 05:31
Vital Signs and I&O:
Vital Signs
Temp Pulse Resp BP Pulse Ox
98 F 95 16 115/79 100
04/27/24 09:15 04/27/24 09:15 04/27/24 09:15 04/27/24 09:14 04/27/24 09:15
Vital Signs
Temp Pulse Resp BP Pulse Ox
98 F 95 16 115/79 100
04/27/24 09:15 04/27/24 09:15 04/27/24 09:15 04/27/24 09:14 04/27/24 09:15
Intake & Output
04/25/24 04/26/24 04/27/24 04/28/24
06:59 06:59 06:59 06:59
Intake Total 395.3 / 395.3 1960 / 1960 1155 / 1155 250 / 250
Output Total 595 / 595 1325 / 1325 2400 / 2400 1525 / 1525
Balance -199.7 / -199.7 635 / 635 -1245 / -1245 -1275 / -1275
Physical Exam
Physical Exam
General: Well developed, well nourished in NAD.
Neck: Supple, no JVD, HJR, carotids +2 B/L, no bruits bilaterally.
Heart: Non displaced PMI, RRR, no murmurs, No S3, S4, no rubs.
Lungs: Scattered rhonchi
Sternal dressings noted
Extremities: No clubbing, cyanosis or edema bilaterally.
Neuro: Grossly nonfocal, awake, alert and oriented x3.
--- NOTE | 2024-04-27 10:42 | W.DCSUMMARY ---
Discharge Summary
Discharge Data
Date of Admission: 04/23/24
Date of Discharge: 04/27/24
Total time spent discharging patient (in min): 45
-
Pending Results: No
Hospital Course
Primary care physician:
Dr. Dillon
Outpatient liquefied natural gas plant operator:
Dr. Eng
Inpatient consultants:
DCA, actuarial manager
Procedures:
1. Radical mitral valve repair (38 mm band annuloplasty, 5 pairs of CV 4 Rockwell-Michael with 3 pairs going to the posterior leaflet in 2 pairs to the anterior leaflet, triangular resection of the flail segment and primary closure) Via Right mini
thoracotomy
Primary Diagnosis:
1. 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
Secondary Diagnoses:
1. Multiple myeloma status post stem cell transplant 2015
2. Acute postop v-fib arrest S/P CPR (chest compressions, shock x 3, and meds, coded x ~10 min before achieving ROSC)
3. Neuropathy
4. Benign ventricular ectopy, trigeminy
5. Acute postop 2:1 AV block and acclerrated junctional
6. Acute postop cardiogenic shock (CI 1.38), S/P dobutamine gtt
7. acute kidney injury
HPI: 68-year-old male seen in the office by Dr. Ernst for increased fatigue, less than, more tachycardia with exertion with severe mitral insufficiency presented electively on 04/23 for a mitral valve repair.
Hospital course: Patient was electively admitted on 04/23 for heart port mitral repair. He was extubated in the OR and was sent to the CVICU for the remainder of his recovery. He initially was in complete heart block but then recovered to a
first-degree AV block. Patient then developed some ventricular activity and then ventricular fibrillation arrested at 1612. CPR was started patient was given 1 mg of epi, lidocaine and defibrillated 3 times with return of spontaneous circulation.
He was also treated with 150 mg of amnio x 2 and was started on a Amio infusion. Immediately post resuscitation patient was able to follow commands in all 4 extremities and he was sedated for a mali. Transesophageal echocardiogram was stable and
patient was extubated later that evening. Overnight he was started on dobutamine for a low cardiac output. On 04/24 postoperative day 1 patient remained hemodynamically stable. Amiodarone was discontinued due to profound bradycardia but p.o.
amnio 200 mg twice daily was started. Patient was D lined transitioned off insulin infusion and downgraded to telemetry status. On 04/25 postoperative day 2, patient was initially reluctant to a LifeVest however became agreeable and workup was
underway. Continued amiodarone and cardiology recommended a low-dose beta-chet however it was not started due to his rhythm being in accelerated junctional. Chest tubes were removed later in the afternoon, Cordis was discontinued, and patient
was weaned down to room air. On 04/26 postoperative day 3 patient was diuresed with 20 mg of IV Lasix. He was also trialed on metoprolol 12.5 mg. However later in the afternoon an EKG revealed that the patient was in accelerated junctional with
retrograde P waves so metoprolol was again discontinued. A repeat transthoracic echocardiogram was performed and the echo was reviewed both by Drs. Eng and Sujata and there is no trace residual MR. On 04/27 postoperative day 4 patient had his
two-view chest x-ray and heart rhythm remained stable. He received an additional dose of 20 mg of IV Lasix. Wire was cut at the skin patient showered here and was deemed stable for discharge and was sent home.
Home medication changes:
See below
Discharge Plan
-
Patient Disposition: Home (Routine Discharge)
Discharge Diagnosis/Procedures: Radical mitral valve repair (38 mm band annuloplasty, 5 pairs of CV 4 Rockwell-Michael with 3 pairs going to the posterior leaflet in 2 pairs to the anterior leaflet, triangular resection of the flail segment and primary
closure)
Condition: Fair
Diet: Low Cholesterol
Activity: No strenuous activity
Driving Restrictions: Not until seen by your Dr
Bathing Restrictions: OK to Shower
Other Services: Cardiac Rehab
Specialty Instructions: Weigh Daily- Call MD for wt gain/loss 3 lbs overnight/5 lbs in 1 week
Activity Restrictions/Additional Instructions:
ACTIVITY:
-No strenuous activity: no heavy lifting, pushing, pulling anything over 15 pounds for one month
-continue to use stairs as tolerated
DRIVING RESTRICTIONS:
-No driving for one month or until approved by your surgeon
WOUND CARE:
-Shower daily. Use soap & water.
-No lotions, creams or powders on incision area.
DIET:
-continue a low fat/low cholesterol diet.
-IF you are diabetic, continue carb controlled diet.
CARDIAC REHAB:
-Please make appointment to start in 5-6 weeks with your local hospital program. (See Cardiac Rehabilitation Discharge Booklet).
SPECIALTY INSTRUCTIONS:
-Weigh yourself daily. Call your physician for any weight gain/loss of 3 lbs overnight or 5 lbs in one week.
-REPORT any clicking noise or uneven appearance of your sternum to your surgeon immediately.
-If you smoke, you are instructed to quit. The [place] smoking hotline phone number is [phone]
Referrals:
CT Transitional Care Nurse [Outside] (The Cardiothoracic Transitional Care Nurse will call you to set up a visit in 1-2 days.)
[facility] [Outside]
(Cardiac Rehab Orientation appointment is on 05/29/2024@ 1:00pm.
The Cardiac Rehab gym is located on the first floor of the [facility].)
Rohini Dillon MD [Family Provider] -
Senia Sherman CRNP [Specified Professional Personl] - 05/30/24 10:20 am
Aldo Ernst MD [Active] - 05/22/24 1:30 pm
Additional Discharge Medication Instructions: Please wear your lifevest at all times except in the shower
Please continue your amiodarone 200mg twice a day for two weeks and then 200mg daily
Please hold your Revlimid for 2 weeks post-operatively.
Prescriptions:
New
cyclobenzaprine 10 mg Tablet
5 mg PO Q8HPRN PRN (Reason: muscle spasm) Qty: 30 0RF
amiodarone 200 mg Tablet
200 mg PO BID Qty: 90 1RF
Rx Instructions:
Please take 200mg BID and then 200mg daily
acetaminophen 325 mg Tablet
650 mg PO Q4HPRN PRN (Reason: mild pain,headache,temp >101F ) Qty: 0 0RF
gabapentin 100 mg Capsule
100 mg PO TID Qty: 30 0RF
oxycodone 5 mg Tablet
2.5 mg PO Q4HPRN PRN (Reason: severe pain) Qty: 7 0RF
Continued
epinephrine [EpiPen 2-Feng] 0.3 mg/0.3 mL auto-injector
0.3 mg IM PRN PRN (Reason: bee stings )
aspirin 81 mg Tablet,Delayed Release (Dr/Ec)
81 mg PO HS
Held
lenalidomide [Revlimid] 10 mg Capsule
10 mg PO QPM
Hold Instructions: Resume on 05/11/24. Please hold for 2 weeks post-op
Discharge Orders:
Discharge Patient (As Directed); Ordered 04/27/24
Ordered By: Anjana Rascon
Care Plan Goals
Care Plan Goals:
Problem: Readiness for enhanced knowledge related to diagnosis and treatment plan
Goal: Understand your diagnosis and treatment plan needs, including medications if applicable.
Instructions: Know your diagnosis, underlying causes and treatment plan options, including medications if applicable. Consult with your health care team to learn about your diagnosis and treatment plan, including medications if applicable.
Discharge Date and Time
Print Language: GEORGIAN
--- NOTE | 2024-04-27 11:30 | PTCARENOTE ---
Patient set up to shower, completed and dressed independently. Lifevest applied. PIV removed. Discharge instructions thoroughly reviewed w/patient and spouse, all questions answered. Patient and all belongings transported to waiting vehicle for d/c
home.
== END 2024-04-27 11:43 | disposition home or self-care (01) | DRG 219 ==
LOC: CVICU 05:01
PROVIDERS: Anesthesiology; Clinical Nurse Specialist Acute Care; Internal Medicine Cardiovascular Disease; Physician Assistant Medical; ADMITTING PHYSICIAN Thoracic Surgery (Cardiothoracic Vascular Surgery); CONSULT PHYSICIAN Internal Medicine Critical Care Medicine; FAMILY PHYSICIAN Internal Medicine
PROC: 02BG0ZZ Excision of Mitral Valve, Open Approach (ICD-10-PCS; 2024-04-23)
PROC: 02UG0JZ Supplement Mitral Valve with Synthetic Substitute, Open Approach (ICD-10-PCS; 2024-04-23)
PROC: 5A1221Z Performance of Cardiac Output, Continuous (ICD-10-PCS; 2024-04-23)
PROC: 0BNF0ZZ Release Right Lower Lung Lobe, Open Approach (ICD-10-PCS; 2024-04-23)
PROC: 5A12012 Performance of Cardiac Output, Single, Manual (ICD-10-PCS; 2024-04-23)
PROC: B24BZZ4 Ultrasonography of Heart with Aorta, Transesophageal (ICD-10-PCS; 2024-04-23)
PROC: 5A2204Z Restoration of Cardiac Rhythm, Single (ICD-10-PCS; 2024-04-23)
DX: I34.0 Nonrheumatic mitral (valve) insufficiency (principal); I49.01 Ventricular fibrillation; I51.1 Rupture of chordae tendineae, not elsewhere classified; T81.11XA Postprocedural cardiogenic shock, initial encounter; Z94.84 Stem cells transplant status; I97.120 Postprocedural cardiac arrest following cardiac surgery; I97.190 Other postprocedural cardiac functional disturbances following cardiac surgery; I44.2 Atrioventricular block, complete; N17.9 Acute kidney failure, unspecified; D62 Acute posthemorrhagic anemia; J98.11 Atelectasis; G62.9 Polyneuropathy, unspecified; J98.4 Other disorders of lung; D64.9 Anemia, unspecified; R00.1 Bradycardia, unspecified; D69.6 Thrombocytopenia, unspecified; Y83.2 Surgical operation with anastomosis, bypass or graft as the cause of abnormal reaction of the patient, or of later complication, without mention of misadventure at the time of the procedure; E87.70 Fluid overload, unspecified; E86.1 Hypovolemia; Z79.82 Long term (current) use of aspirin; Z79.899 Other long term (current) drug therapy
CPT/HCPCS: 88305; 36415; 71045; 71046; 80048; 80053; 81003; 82248; 82330; 82565; 82805; 82810; 82947; 82962; 83036; 83735; 84100; 84132; 84302; 84520; 85014; 85018; 85025; 85027; 85049; 85610; 85730; 86850; 86900; 86901; 86920; 87070; 87147; 93005; 93306; 93312; 93320; 93325; 93880; 94002; 94010; J2916

== ENCOUNTER → 2024-05-20 06:31 | Outpatient (REF) | payer MEDICARE, OTHER, SELFPAY ==
[2024-05-20 06:56] LABS: % Basophils 1.4 % (0-2); % Eosinophils 5.7 % (0-6); % Immature Granulocytes 0.5 % (0-0.5); % Lymphocytes 20.4 % (20.5-51.1); % Monocytes 13.6 % (1.7-9.3); % Neutrophils 58.4 % (42.2-75.2); Absolute Basophils 0.1 10^3/uL (0-0.2); Absolute Eosinophils 0.3 10^3/uL (0-0.7); Absolute Lymphocytes 0.9 10^3/uL (1.2-3.4); Absolute Monocytes 0.6 10^3/uL (0.1-0.6); Absolute Neutrophils 2.6 10^3/uL (1.4-6.5); Hematocrit 35.3 % (39.0-52.0); Hemoglobin 12.1 g/dL (13.0-18.0); Mean Corp Hgb Conc. 34.3 g/dL (33.0-37.0); Mean Corpuscular Hgb 35.4 pg (27.0-31.0); Mean Corpuscular Volume 103.2 fL (80.0-94.0); Mean Platelet Volume 8.8 fL (7.4-10.4); Nucleated Red Blood Cells % 0 % (-); Platelet Count 200 10^3/uL (130-400); Red Blood Cell Count 3.42 10^6/uL (4.70-6.10); Red Cell Dist. Width 14.1 % (11.5-14.5); White Blood Cell Count 4.4 10^3/uL (4.8-10.8)
[2024-05-20 07:25] LABS: ALT (SGPT) 29 U/L (0-50); AST (SGOT) 29 U/L (17-59); Albumin 4.2 g/dl (3.5-5.0); Alkaline Phosphatase 174 U/L (38-126); Blood Urea Nitrogen 20 mg/dl (9-20); Carbon Dioxide 32 mmol/L (22-30); Chloride 104 mmol/L (98-107); Glucose 97 mg/dl (70-99); Potassium 3.8 mmol/L (3.5-5.1); Sodium 141 mmol/L (135-145); Total Bilirubin 0.7 mg/dl (0.2-1.3); Total Protein 7.1 g/dl (6.3-8.2); eGFR > 60.00
[2024-05-23 03:26] LABS: Albumin 4.17 g/dL (3.75-5.01); Alpha 1 Globulin 0.34 g/dL (0.19-0.46); Alpha 2 Globulin 0.57 g/dL (0.48-1.05); Free Kappa Light Chains,Quant 18.17 mg/L (3.30-19.40); Free Lambda Light Chains,Quant 12.35 mg/L (5.71-26.30); IgA 53 mg/dL (68-408); IgG 1301 mg/dL (768-1632); IgM 104 mg/dL (35-263); Immunofixation Electrophoresis IFE Done; Kappa/Lambda Fr Light Ratio 1.47 (0.26-1.65); Monoclonal Protein 0.97 g/dL (<=0.00)
== END ==
LOC: REG 06:31
PROVIDERS: ATTENDING PHYSICIAN Internal Medicine Hematology & Oncology; FAMILY PHYSICIAN Internal Medicine; OTHER PHYSICIAN Internal Medicine; REFERRING PHYSICIAN Internal Medicine Medical Oncology
DX: C79.51 Secondary malignant neoplasm of bone (principal); C90.00 Multiple myeloma not having achieved remission; Q78.2 Osteopetrosis
CPT/HCPCS: 36415; 80053; 82784; 83521; 84155; 84165; 85025; 86334

== ENCOUNTER 2024-06-10 15:04 | Outpatient (RCR) | payer MEDICARE, OTHER, SELFPAY | END 2024-06-10 23:59 | disposition home or self-care (01) | LOC: CRHB 15:04 | PROVIDERS: ATTENDING PHYSICIAN Thoracic Surgery (Cardiothoracic Vascular Surgery) | DX: I34.0 Nonrheumatic mitral (valve) insufficiency (principal); Z98.890 Other specified postprocedural states | CPT/HCPCS: G0422; G0423 ==

== ENCOUNTER 2024-07-12 08:44 | Outpatient (RCR) | payer MEDICARE, OTHER, SELFPAY | END 2024-07-12 23:59 | disposition home or self-care (01) | LOC: CRHB 08:44 | PROVIDERS: ATTENDING PHYSICIAN Internal Medicine Cardiovascular Disease; FAMILY PHYSICIAN Internal Medicine | DX: Z95.4 Presence of other heart-valve replacement (principal); Z98.890 Other specified postprocedural states | CPT/HCPCS: G0422; G0423 ==

== ENCOUNTER → 2024-08-05 07:34 | Outpatient (REF) | payer MEDICARE, OTHER, SELFPAY ==
[2024-08-05 08:16] LABS: % Eosinophils 2.2 % (0-6); % Immature Granulocytes 0.5 % (0-0.5); % Lymphocytes 19.2 % (20.5-51.1); % Monocytes 16.8 % (1.7-9.3); % Neutrophils 60.3 % (42.2-75.2); Absolute Eosinophils 0.1 10^3/uL (0-0.7); Absolute Lymphocytes 0.8 10^3/uL (1.2-3.4); Absolute Monocytes 0.7 10^3/uL (0.1-0.6); Absolute Neutrophils 2.5 10^3/uL (1.4-6.5); Hematocrit 35.7 % (39.0-52.0); Hemoglobin 11.7 g/dL (13.0-18.0); Mean Corp Hgb Conc. 32.8 g/dL (33.0-37.0); Mean Corpuscular Hgb 33.5 pg (27.0-31.0); Mean Corpuscular Volume 102.3 fL (80.0-94.0); Mean Platelet Volume 8.6 fL (7.4-10.4); Nucleated Red Blood Cells % 0 % (-); Platelet Count 238 10^3/uL (130-400); Red Blood Cell Count 3.49 10^6/uL (4.70-6.10); Red Cell Dist. Width 14.5 % (11.5-14.5); White Blood Cell Count 4.2 10^3/uL (4.8-10.8)
[2024-08-05 08:57] LABS: ALT (SGPT) 43 U/L (0-50); AST (SGOT) 25 U/L (17-59); Albumin 3.8 g/dl (3.5-5.0); Alkaline Phosphatase 166 U/L (38-126); Blood Urea Nitrogen 23 mg/dl (9-20); Calcium 9.3 mg/dl (8.4-10.2); Carbon Dioxide 29 mmol/L (22-30); Chloride 102 mmol/L (98-107); Glucose 91 mg/dl (70-99); Potassium 4.2 mmol/L (3.5-5.1); Sodium 139 mmol/L (135-145); Total Bilirubin 0.6 mg/dl (0.2-1.3); Total Protein 7.1 g/dl (6.3-8.2); eGFR > 60.00
[2024-08-07 14:27] LABS: Albumin 3.99 g/dL (3.75-5.01); Alpha 1 Globulin 0.39 g/dL (0.19-0.46); Alpha 2 Globulin 0.77 g/dL (0.48-1.05); Free Kappa Light Chains,Quant 17.82 mg/L (3.30-19.40); IgA 38 mg/dL (68-408); IgG 1609 mg/dL (768-1632); IgM 39 mg/dL (35-263); Immunofixation Electrophoresis IFE Done; Kappa/Lambda Fr Light Ratio 2.28 (0.26-1.65); Monoclonal Protein 1.24 g/dL (<=0.00); Total Protein-Electrophoresis 7.3 g/dL (6.3-8.2)
== END ==
LOC: REG 07:34
PROVIDERS: ATTENDING PHYSICIAN Internal Medicine Hematology & Oncology; FAMILY PHYSICIAN Internal Medicine
DX: C79.51 Secondary malignant neoplasm of bone (principal); C90.00 Multiple myeloma not having achieved remission; Q78.2 Osteopetrosis
CPT/HCPCS: 36415; 80053; 82784; 83521; 84155; 84165; 85025; 86334

== ENCOUNTER → 2024-08-05 13:46 | Outpatient (RCR) | payer MEDICARE, OTHER, SELFPAY | END | disposition home or self-care (01) | LOC: CRHB 13:46 | PROVIDERS: ATTENDING PHYSICIAN Internal Medicine Cardiovascular Disease; FAMILY PHYSICIAN Internal Medicine | DX: Z95.4 Presence of other heart-valve replacement (principal) | CPT/HCPCS: G0422; G0423 ==

== ENCOUNTER → 2024-09-13 06:47 | Outpatient (REF) | payer MEDICARE, OTHER, SELFPAY ==
[2024-09-13 07:17] LABS: % Basophils 2.9 % (0-2); % Eosinophils 4.7 % (0-6); % Immature Granulocytes 0.3 % (0-0.5); % Monocytes 8.5 % (1.7-9.3); % Neutrophils 60.6 % (42.2-75.2); Absolute Basophils 0.1 10^3/uL (0-0.2); Absolute Eosinophils 0.2 10^3/uL (0-0.7); Absolute Lymphocytes 0.8 10^3/uL (1.2-3.4); Absolute Monocytes 0.3 10^3/uL (0.1-0.6); Absolute Neutrophils 2.1 10^3/uL (1.4-6.5); Hematocrit 35.3 % (39.0-52.0); Hemoglobin 11.9 g/dL (13.0-18.0); Mean Corp Hgb Conc. 33.7 g/dL (33.0-37.0); Mean Corpuscular Hgb 33.8 pg (27.0-31.0); Mean Corpuscular Volume 100.3 fL (80.0-94.0); Mean Platelet Volume 8.9 fL (7.4-10.4); Nucleated Red Blood Cells % 0 % (-); Platelet Count 182 10^3/uL (130-400); Red Blood Cell Count 3.52 10^6/uL (4.70-6.10); Red Cell Dist. Width 15.3 % (11.5-14.5); White Blood Cell Count 3.4 10^3/uL (4.8-10.8)
[2024-09-13 07:26] LABS: INR 0.94; PT 13.1 Sec (11.4-14.6)
[2024-09-13 07:30] VITALS: BP 121/82; BP_SYST 78
[2024-09-13] MEDS: ATIVAN 0.5 MG IV (08:23)
[2024-09-13] MEDS: FLUSH (NSS) 1 FLUSH IV (08:23)
[2024-09-13] MEDS: NSS (PRESERVATIVE FREE) 0.25 ML IV (08:23)
[2024-09-13 09:07] VITALS: BP 149/94; BP_SYST 76
[2024-09-13 09:19] VITALS: BP 141/93
== END ==
LOC: RADI 06:47
PROVIDERS: ATTENDING PHYSICIAN Internal Medicine Hematology & Oncology; FAMILY PHYSICIAN Internal Medicine; OTHER PHYSICIAN Physician Assistant
DX: C90.00 Multiple myeloma not having achieved remission (principal)
CPT/HCPCS: 88305; 88311; 88312; 36415; 38222; 77012; 85025; 85610; 88313

== ENCOUNTER → 2024-10-03 07:06 | Outpatient (REF) | payer MEDICARE, OTHER, SELFPAY | LOC: RCS 07:06 | PROVIDERS: ATTENDING PHYSICIAN Thoracic Surgery (Cardiothoracic Vascular Surgery); FAMILY PHYSICIAN Internal Medicine | DX: Z98.890 Other specified postprocedural states (principal) | CPT/HCPCS: 93306 ==

== ENCOUNTER → 2024-10-17 08:33 | Outpatient (REF) | payer MEDICARE, OTHER, SELFPAY ==
[2024-10-17 09:35] LABS: % Basophils 2.9 % (0-2); % Eosinophils 7.2 % (0-6); % Immature Granulocytes 0.4 % (0-0.5); % Lymphocytes 29.3 % (20.5-51.1); % Neutrophils 48.2 % (42.2-75.2); Absolute Basophils 0.1 10^3/uL (0-0.2); Absolute Eosinophils 0.2 10^3/uL (0-0.7); Absolute Lymphocytes 0.8 10^3/uL (1.2-3.4); Absolute Monocytes 0.3 10^3/uL (0.1-0.6); Absolute Neutrophils 1.3 10^3/uL (1.4-6.5); Hematocrit 33.4 % (39.0-52.0); Hemoglobin 11.6 g/dL (13.0-18.0); Mean Corp Hgb Conc. 34.7 g/dL (33.0-37.0); Mean Corpuscular Hgb 35.2 pg (27.0-31.0); Mean Corpuscular Volume 101.2 fL (80.0-94.0); Nucleated Red Blood Cells % 0 % (-); Platelet Count 164 10^3/uL (130-400); Red Cell Dist. Width 16.1 % (11.5-14.5); White Blood Cell Count 2.8 10^3/uL (4.8-10.8)
[2024-10-17 10:27] LABS: ALT (SGPT) 41 U/L (0-50); AST (SGOT) 30 U/L (17-59); Albumin 4.3 g/dl (3.5-5.0); Alkaline Phosphatase 130 U/L (38-126); Blood Urea Nitrogen 21 mg/dl (9-20); Calcium 9.4 mg/dl (8.4-10.2); Carbon Dioxide 27 mmol/L (22-30); Chloride 106 mmol/L (98-107); Glucose 105 mg/dl (70-99); Potassium 4.4 mmol/L (3.5-5.1); Sodium 142 mmol/L (135-145); Total Bilirubin 0.7 mg/dl (0.2-1.3); Total Protein 7.6 g/dl (6.3-8.2); eGFR > 60.00
== END ==
LOC: REG 08:33
PROVIDERS: ATTENDING PHYSICIAN Internal Medicine Hematology & Oncology
DX: C79.51 Secondary malignant neoplasm of bone (principal); C90.00 Multiple myeloma not having achieved remission; Q78.2 Osteopetrosis
CPT/HCPCS: 36415; 80053; 82784; 83521; 84155; 84165; 85025; 86334

== ENCOUNTER 2024-11-01 15:24 | Outpatient (RCR) | payer MEDICARE, OTHER, SELFPAY ==
[2024-11-01 09:16] LABS: % Basophils 0.7 % (0-2); % Eosinophils 5.4 % (0-6); % Immature Granulocytes 0.4 % (0-0.5); % Lymphocytes 29.6 % (20.5-51.1); % Monocytes 9.7 % (1.7-9.3); % Neutrophils 54.2 % (42.2-75.2); Absolute Eosinophils 0.2 10^3/uL (0-0.7); Absolute Lymphocytes 0.8 10^3/uL (1.2-3.4); Absolute Monocytes 0.3 10^3/uL (0.1-0.6); Absolute Neutrophils 1.5 10^3/uL (1.4-6.5); Hematocrit 33.8 % (39.0-52.0); Hemoglobin 11.9 g/dL (13.0-18.0); Mean Corp Hgb Conc. 35.2 g/dL (33.0-37.0); Mean Corpuscular Hgb 35.5 pg (27.0-31.0); Mean Corpuscular Volume 100.9 fL (80.0-94.0); Mean Platelet Volume 8.5 fL (7.4-10.4); Platelet Count 159 10^3/uL (130-400); Red Blood Cell Count 3.35 10^6/uL (4.70-6.10); White Blood Cell Count 2.8 10^3/uL (4.8-10.8)
[2024-11-01 10:07] LABS: ALT (SGPT) 51 U/L (0-50); AST (SGOT) 63 U/L (17-59); Albumin 4.2 g/dl (3.5-5.0); Alkaline Phosphatase 133 U/L (38-126); Blood Urea Nitrogen 32 mg/dl (9-20); Calcium 9.1 mg/dl (8.4-10.2); Carbon Dioxide 28 mmol/L (22-30); Chloride 110 mmol/L (98-107); Glucose 83 mg/dl (70-99); Potassium 4.5 mmol/L (3.5-5.1); Sodium 142 mmol/L (135-145); Total Bilirubin 0.5 mg/dl (0.2-1.3); Total Protein 8.1 g/dl (6.3-8.2); eGFR > 60.00
[2024-11-01 10:37] LABS: Hepatitis B Surface Antigen Negative (Negative)
[2024-11-01 10:55] LABS: Hepatitis B Core Ab, Total Negative (Negative); Hepatitis B Surface Antibody Negative
== END 2024-11-09 23:59 | disposition home or self-care (01) ==
LOC: OID 15:24
PROVIDERS: ATTENDING PHYSICIAN Internal Medicine Hematology & Oncology
DX: C90.00 Multiple myeloma not having achieved remission (principal)
CPT/HCPCS: 80053; 85025; 86704; 86706; 86850; 86900; 86901; 87340

== ENCOUNTER → 2024-11-07 09:21 | Outpatient (REF) | payer MEDICARE, OTHER, SELFPAY ==
[2024-11-07 10:07] LABS: % Basophils 0.2 % (0-2); % Immature Granulocytes 0.4 % (0-0.5); % Monocytes 9.6 % (1.7-9.3); % Neutrophils 69.8 % (42.2-75.2); Absolute Eosinophils 0.2 10^3/uL (0-0.7); Absolute Lymphocytes 0.8 10^3/uL (1.2-3.4); Absolute Monocytes 0.5 10^3/uL (0.1-0.6); Absolute Neutrophils 3.4 10^3/uL (1.4-6.5); Hematocrit 36.7 % (39.0-52.0); Hemoglobin 12.5 g/dL (13.0-18.0); Mean Corp Hgb Conc. 34.1 g/dL (33.0-37.0); Mean Corpuscular Volume 102.8 fL (80.0-94.0); Mean Platelet Volume 9.1 fL (7.4-10.4); Nucleated Red Blood Cells % 0 % (-); Platelet Count 186 10^3/uL (130-400); Red Blood Cell Count 3.57 10^6/uL (4.70-6.10); Red Cell Dist. Width 15.5 % (11.5-14.5); White Blood Cell Count 4.8 10^3/uL (4.8-10.8)
[2024-11-07 11:38] LABS: ALT (SGPT) 118 U/L (0-50); AST (SGOT) 60 U/L (17-59); Albumin 4.1 g/dl (3.5-5.0); Alkaline Phosphatase 150 U/L (38-126); Blood Urea Nitrogen 29 mg/dl (9-20); Calcium 9.2 mg/dl (8.4-10.2); Carbon Dioxide 30 mmol/L (22-30); Chloride 106 mmol/L (98-107); Glucose 89 mg/dl (70-99); Sodium 141 mmol/L (135-145); Total Bilirubin 0.4 mg/dl (0.2-1.3); Total Protein 7.7 g/dl (6.3-8.2); eGFR > 60.00
== END ==
LOC: REG 09:21
PROVIDERS: ATTENDING PHYSICIAN Internal Medicine Hematology & Oncology; FAMILY PHYSICIAN Internal Medicine
DX: C79.51 Secondary malignant neoplasm of bone (principal); C90.00 Multiple myeloma not having achieved remission; Q78.2 Osteopetrosis
CPT/HCPCS: 36415; 80053; 85025

== ENCOUNTER → 2024-11-11 06:23 | Outpatient (REF) | payer MEDICARE, OTHER, SELFPAY ==
[2024-11-11 07:22] LABS: ALT (SGPT) 84 U/L (0-50); AST (SGOT) 28 U/L (17-59); Alkaline Phosphatase 150 U/L (38-126); Blood Urea Nitrogen 26 mg/dl (9-20); Calcium 8.6 mg/dl (8.4-10.2); Carbon Dioxide 28 mmol/L (22-30); Chloride 108 mmol/L (98-107); Glucose 94 mg/dl (70-99); Sodium 140 mmol/L (135-145); Total Bilirubin 0.5 mg/dl (0.2-1.3); eGFR > 60.00
== END ==
LOC: REG 06:23
PROVIDERS: ATTENDING PHYSICIAN Internal Medicine Hematology & Oncology; FAMILY PHYSICIAN Internal Medicine; REFERRING PHYSICIAN Internal Medicine
DX: C79.51 Secondary malignant neoplasm of bone (principal); C90.00 Multiple myeloma not having achieved remission; Q78.2 Osteopetrosis
CPT/HCPCS: 36415; 80053

== ENCOUNTER → 2024-11-14 06:39 | Outpatient (REF) | payer MEDICARE, OTHER, SELFPAY ==
[2024-11-14 07:12] LABS: % Basophils 0.6 % (0-2); % Eosinophils 2.2 % (0-6); % Immature Granulocytes 0.6 % (0-0.5); % Neutrophils 69.6 % (42.2-75.2); Absolute Eosinophils 0.1 10^3/uL (0-0.7); Absolute Lymphocytes 0.7 10^3/uL (1.2-3.4); Absolute Monocytes 0.6 10^3/uL (0.1-0.6); Absolute Neutrophils 3.4 10^3/uL (1.4-6.5); Hematocrit 35.2 % (39.0-52.0); Hemoglobin 12.2 g/dL (13.0-18.0); Mean Corp Hgb Conc. 34.7 g/dL (33.0-37.0); Mean Corpuscular Hgb 35.8 pg (27.0-31.0); Mean Corpuscular Volume 103.2 fL (80.0-94.0); Nucleated Red Blood Cells % 0 % (-); Platelet Count 161 10^3/uL (130-400); Red Blood Cell Count 3.41 10^6/uL (4.70-6.10); White Blood Cell Count 4.9 10^3/uL (4.8-10.8)
[2024-11-14 07:35] LABS: IgG 1438 mg/dl (700-1600)
[2024-11-14 07:42] LABS: ALT (SGPT) 74 U/L (0-50); AST (SGOT) 31 U/L (17-59); Albumin 3.8 g/dl (3.5-5.0); Alkaline Phosphatase 139 U/L (38-126); Blood Urea Nitrogen 29 mg/dl (9-20); Calcium 9.1 mg/dl (8.4-10.2); Carbon Dioxide 31 mmol/L (22-30); Chloride 107 mmol/L (98-107); Glucose 84 mg/dl (70-99); Potassium 4.2 mmol/L (3.5-5.1); Sodium 141 mmol/L (135-145); Total Bilirubin 0.6 mg/dl (0.2-1.3); Total Protein 6.7 g/dl (6.3-8.2); eGFR > 60.00
[2024-11-16 07:26] LABS: IgA 7 mg/dL (68-408); IgM 25 mg/dL (35-263)
== END ==
LOC: REG 06:39
PROVIDERS: ATTENDING PHYSICIAN Internal Medicine Hematology & Oncology; FAMILY PHYSICIAN Internal Medicine
DX: C79.51 Secondary malignant neoplasm of bone (principal); C90.00 Multiple myeloma not having achieved remission; Q78.2 Osteopetrosis
CPT/HCPCS: 36415; 80053; 82784; 83521; 84155; 84165; 85025; 86334

== ENCOUNTER → 2024-11-21 06:26 | Outpatient (REF) | payer MEDICARE, OTHER, SELFPAY ==
[2024-11-21 07:49] LABS: Hematocrit 39.2 % (39.0-52.0); Hemoglobin 13.5 g/dL (13.0-18.0); Mean Corp Hgb Conc. 34.4 g/dL (33.0-37.0); Mean Corpuscular Hgb 35.1 pg (27.0-31.0); Mean Corpuscular Volume 101.8 fL (80.0-94.0); Platelet Count 127 10^3/uL (130-400); Red Blood Cell Count 3.85 10^6/uL (4.70-6.10); Red Cell Dist. Width 14.8 % (11.5-14.5)
[2024-11-21 07:55] LABS: ALT (SGPT) 57 U/L (0-50); AST (SGOT) 30 U/L (17-59); Albumin 3.9 g/dl (3.5-5.0); Alkaline Phosphatase 125 U/L (38-126); Blood Urea Nitrogen 32 mg/dl (9-20); Carbon Dioxide 27 mmol/L (22-30); Chloride 109 mmol/L (98-107); Glucose 96 mg/dl (70-99); Potassium 4.7 mmol/L (3.5-5.1); Sodium 141 mmol/L (135-145); Total Bilirubin 0.7 mg/dl (0.2-1.3); Total Protein 6.5 g/dl (6.3-8.2); eGFR > 60.00
[2024-11-21 09:43] LABS: Absolute Neutrophils -Man Diff 0.4 10^3/uL (1.4-6.5); Anisocytosis 1+; Band Neutrophils 0 % (0-3); Eosinophils 3 % (0-6); Lymphocytes 41 % (20-51); Monocytes 18 % (2-9); Normal RBC Morphology No; Ovalocytes Slight; Platelets Checked Yes; Segmented Neutrophils 38 % (42-75); Total Cells Counted 100; White Blood Cell Count 1.1 10^3/uL (4.8-10.8)
== END ==
LOC: REG 06:26
PROVIDERS: ATTENDING PHYSICIAN Internal Medicine Hematology & Oncology; FAMILY PHYSICIAN Internal Medicine
DX: C79.51 Secondary malignant neoplasm of bone (principal); C90.00 Multiple myeloma not having achieved remission; Q78.2 Osteopetrosis
CPT/HCPCS: 36415; 80053; 85025

== ENCOUNTER → 2024-11-27 06:27 | Outpatient (REF) | payer MEDICARE, OTHER, SELFPAY ==
[2024-11-27 07:45] LABS: Hemoglobin 12.5 g/dL (13.0-18.0); Mean Corp Hgb Conc. 34.7 g/dL (33.0-37.0); Mean Corpuscular Hgb 35.1 pg (27.0-31.0); Mean Corpuscular Volume 101.1 fL (80.0-94.0); Platelet Count 154 10^3/uL (130-400); Red Blood Cell Count 3.56 10^6/uL (4.70-6.10); Red Cell Dist. Width 14.5 % (11.5-14.5); White Blood Cell Count 1.8 10^3/uL (4.8-10.8)
[2024-11-27 08:11] LABS: ALT (SGPT) 51 U/L (0-50); AST (SGOT) 26 U/L (17-59); Albumin 3.6 g/dl (3.5-5.0); Alkaline Phosphatase 97 U/L (38-126); Blood Urea Nitrogen 30 mg/dl (9-20); Calcium 9.1 mg/dl (8.4-10.2); Carbon Dioxide 31 mmol/L (22-30); Chloride 107 mmol/L (98-107); Glucose 84 mg/dl (70-99); Potassium 4.7 mmol/L (3.5-5.1); Sodium 141 mmol/L (135-145); Total Bilirubin 0.7 mg/dl (0.2-1.3); Total Protein 6.1 g/dl (6.3-8.2); eGFR > 60.00
[2024-11-27 12:40] LABS: Absolute Neutrophils -Man Diff 0.3 10^3/uL (1.4-6.5); Band Neutrophils 1 % (0-3); Lymphocytes 46 % (20-51); Segmented Neutrophils 17 % (42-75)
[2024-11-27 12:41] LABS: Atypical Lymphocytes 3 %; Eosinophils 5 % (0-6); Monocytes 28 % (2-9); Normal RBC Morphology Yes; Platelets Checked Yes
[2024-11-27 12:42] LABS: Total Cells Counted 100
== END ==
LOC: REG 06:27
PROVIDERS: ATTENDING PHYSICIAN Internal Medicine Hematology & Oncology; FAMILY PHYSICIAN Internal Medicine
DX: C79.51 Secondary malignant neoplasm of bone (principal); C90.00 Multiple myeloma not having achieved remission; Q78.2 Osteopetrosis
CPT/HCPCS: 36415; 80053; 85025

== ENCOUNTER → 2024-12-05 06:30 | Outpatient (REF) | payer MEDICARE, OTHER, SELFPAY ==
[2024-12-05 07:24] LABS: % Basophils 1.3 % (0-2); % Eosinophils 1.7 % (0-6); % Immature Granulocytes 0.4 % (0-0.5); % Monocytes 12.6 % (1.7-9.3); Absolute Lymphocytes 0.7 10^3/uL (1.2-3.4); Absolute Monocytes 0.3 10^3/uL (0.1-0.6); Absolute Neutrophils 1.2 10^3/uL (1.4-6.5); Hematocrit 34.1 % (39.0-52.0); Hemoglobin 11.9 g/dL (13.0-18.0); Mean Corp Hgb Conc. 34.9 g/dL (33.0-37.0); Mean Corpuscular Hgb 35.1 pg (27.0-31.0); Mean Corpuscular Volume 100.6 fL (80.0-94.0); Mean Platelet Volume 8.9 fL (7.4-10.4); Nucleated Red Blood Cells % 0 % (-); Platelet Count 191 10^3/uL (130-400); Red Blood Cell Count 3.39 10^6/uL (4.70-6.10); Red Cell Dist. Width 14.2 % (11.5-14.5); White Blood Cell Count 2.3 10^3/uL (4.8-10.8)
[2024-12-05 07:49] LABS: ALT (SGPT) 27 U/L (0-50); AST (SGOT) 23 U/L (17-59); Albumin 3.9 g/dl (3.5-5.0); Alkaline Phosphatase 94 U/L (38-126); Blood Urea Nitrogen 23 mg/dl (9-20); Calcium 8.7 mg/dl (8.4-10.2); Carbon Dioxide 27 mmol/L (22-30); Chloride 110 mmol/L (98-107); Glucose 88 mg/dl (70-99); Potassium 4.5 mmol/L (3.5-5.1); Sodium 140 mmol/L (135-145); Total Bilirubin 0.6 mg/dl (0.2-1.3); Total Protein 6.3 g/dl (6.3-8.2); eGFR > 60.00
== END ==
LOC: REG 06:30
PROVIDERS: ATTENDING PHYSICIAN Internal Medicine Hematology & Oncology; FAMILY PHYSICIAN Internal Medicine
DX: C79.51 Secondary malignant neoplasm of bone (principal); C90.00 Multiple myeloma not having achieved remission; Q78.2 Osteopetrosis
CPT/HCPCS: 36415; 80053; 85025

== ENCOUNTER → 2024-12-19 06:21 | Outpatient (REF) | payer MEDICARE, OTHER, SELFPAY ==
[2024-12-19 07:30] LABS: Hematocrit 32.7 % (39.0-52.0); Hemoglobin 11.3 g/dL (13.0-18.0); Mean Corp Hgb Conc. 34.6 g/dL (33.0-37.0); Mean Corpuscular Volume 102.5 fL (80.0-94.0); Nucleated Red Blood Cells % 0 % (-); Platelet Count 143 10^3/uL (130-400); Red Cell Dist. Width 15.3 % (11.5-14.5)
[2024-12-19 07:48] LABS: ALT (SGPT) 19 U/L (0-50); AST (SGOT) 19 U/L (17-59); Albumin 3.6 g/dl (3.5-5.0); Alkaline Phosphatase 89 U/L (38-126); Blood Urea Nitrogen 20 mg/dl (9-20); Calcium 8.8 mg/dl (8.4-10.2); Carbon Dioxide 28 mmol/L (22-30); Chloride 109 mmol/L (98-107); Glucose 81 mg/dl (70-99); Potassium 3.9 mmol/L (3.5-5.1); Sodium 139 mmol/L (135-145); Total Protein 6.2 g/dl (6.3-8.2); eGFR > 60.00
== END ==
LOC: REG 06:21
PROVIDERS: ATTENDING PHYSICIAN Internal Medicine Hematology & Oncology; FAMILY PHYSICIAN Internal Medicine
DX: C79.51 Secondary malignant neoplasm of bone (principal); C90.00 Multiple myeloma not having achieved remission; Q78.2 Osteopetrosis
CPT/HCPCS: 36415; 80053; 85025

== ENCOUNTER → 2024-12-26 06:17 | Outpatient (REF) | payer MEDICARE, OTHER, SELFPAY ==
[2024-12-26 07:14] LABS: Hematocrit 32.3 % (39.0-52.0); Hemoglobin 11.3 g/dL (13.0-18.0); Mean Corp Hgb Conc. 35.0 g/dL (33.0-37.0); Mean Corpuscular Volume 102.9 fL (80.0-94.0); Nucleated Red Blood Cells % 0 % (-); Platelet Count 132 10^3/uL (130-400); Red Cell Dist. Width 15.8 % (11.5-14.5)
[2024-12-26 07:45] LABS: ALT (SGPT) 29 U/L (0-50); AST (SGOT) 26 U/L (17-59); Albumin 3.8 g/dl (3.5-5.0); Alkaline Phosphatase 97 U/L (38-126); Blood Urea Nitrogen 23 mg/dl (9-20); Calcium 9.1 mg/dl (8.4-10.2); Carbon Dioxide 28 mmol/L (22-30); Chloride 106 mmol/L (98-107); Glucose 81 mg/dl (70-99); Potassium 4.1 mmol/L (3.5-5.1); Sodium 137 mmol/L (135-145); Total Protein 6.1 g/dl (6.3-8.2); eGFR > 60.00
[2024-12-30 08:02] LABS: Albumin 3.72 g/dL (3.75-5.01); Free Kappa Light Chains,Quant 17.22 mg/L (3.30-19.40); Free Lambda Light Chains,Quant 5.09 mg/L (5.71-26.30); Immunofixation Electrophoresis IFE Done; Kappa/Lambda Fr Light Ratio 3.38 (0.26-1.65); Total Protein-Electrophoresis 6.0 g/dL (6.3-8.2)
== END ==
LOC: REG 06:17
PROVIDERS: ATTENDING PHYSICIAN Nurse Practitioner Adult Health; FAMILY PHYSICIAN Internal Medicine
DX: C79.51 Secondary malignant neoplasm of bone (principal); C90.00 Multiple myeloma not having achieved remission; Q78.2 Osteopetrosis
CPT/HCPCS: 36415; 80053; 82784; 83521; 84155; 84165; 85025; 86334

== ENCOUNTER → 2025-01-02 06:27 | Outpatient (REF) | payer MEDICARE, OTHER, SELFPAY ==
[2025-01-02 07:44] LABS: Hematocrit 32.3 % (39.0-52.0); Hemoglobin 11.2 g/dL (13.0-18.0); Mean Corp Hgb Conc. 34.7 g/dL (33.0-37.0); Mean Corpuscular Volume 104.2 fL (80.0-94.0); Platelet Count 164 10^3/uL (130-400); Red Cell Dist. Width 15.5 % (11.5-14.5)
[2025-01-02 08:12] LABS: ALT (SGPT) 24 U/L (0-50); AST (SGOT) 21 U/L (17-59); Albumin 3.7 g/dl (3.5-5.0); Alkaline Phosphatase 75 U/L (38-126); Blood Urea Nitrogen 24 mg/dl (9-20); Calcium 8.9 mg/dl (8.4-10.2); Carbon Dioxide 30 mmol/L (22-30); Chloride 105 mmol/L (98-107); Glucose 89 mg/dl (70-99); Potassium 4.2 mmol/L (3.5-5.1); Sodium 137 mmol/L (135-145); Total Protein 5.9 g/dl (6.3-8.2); eGFR > 60.00
[2025-01-02 08:36] LABS: Absolute Neutrophils -Man Diff 0.3 10^3/uL (1.4-6.5); Anisocytosis 1+; Basophilic Stippling 1+; Hypochromasia Slight; Normal RBC Morphology No; Ovalocytes 1+; Platelets Checked Yes; Polychromasia 1+; Total Cells Counted 100
== END ==
LOC: REG 06:27
PROVIDERS: ATTENDING PHYSICIAN Internal Medicine Hematology & Oncology; FAMILY PHYSICIAN Internal Medicine
DX: C79.51 Secondary malignant neoplasm of bone (principal); C90.00 Multiple myeloma not having achieved remission; Q78.2 Osteopetrosis
CPT/HCPCS: 36415; 80053; 85025

== ENCOUNTER → 2025-01-09 06:30 | Outpatient (REF) | payer MEDICARE, OTHER, SELFPAY ==
[2025-01-09 08:21] LABS: Hematocrit 35.0 % (39.0-52.0); Hemoglobin 11.8 g/dL (13.0-18.0); Mean Corp Hgb Conc. 33.7 g/dL (33.0-37.0); Mean Corpuscular Volume 105.1 fL (80.0-94.0); Platelet Count 208 10^3/uL (130-400); Red Cell Dist. Width 15.7 % (11.5-14.5)
[2025-01-09 08:41] LABS: ALT (SGPT) 24 U/L (0-50); AST (SGOT) 22 U/L (17-59); Albumin 3.9 g/dl (3.5-5.0); Alkaline Phosphatase 70 U/L (38-126); Blood Urea Nitrogen 22 mg/dl (9-20); Calcium 8.7 mg/dl (8.4-10.2); Carbon Dioxide 30 mmol/L (22-30); Chloride 106 mmol/L (98-107); Glucose 86 mg/dl (70-99); Potassium 4.6 mmol/L (3.5-5.1); Sodium 137 mmol/L (135-145); Total Protein 6.1 g/dl (6.3-8.2); eGFR > 60.00
[2025-01-09 10:45] LABS: Absolute Neutrophils -Man Diff 0.9 10^3/uL (1.4-6.5)
[2025-01-09 10:46] LABS: Normal RBC Morphology Yes; Platelets Checked Yes; Total Cells Counted 100
== END ==
LOC: REG 06:30
PROVIDERS: ATTENDING PHYSICIAN Internal Medicine Hematology & Oncology; FAMILY PHYSICIAN Internal Medicine
DX: C79.51 Secondary malignant neoplasm of bone (principal); C90.00 Multiple myeloma not having achieved remission; Q78.2 Osteopetrosis
CPT/HCPCS: 36415; 80053; 85025

== ENCOUNTER → 2025-01-16 06:21 | Outpatient (REF) | payer MEDICARE, OTHER, SELFPAY ==
[2025-01-16 07:43] LABS: Hematocrit 34.7 % (39.0-52.0); Hemoglobin 11.9 g/dL (13.0-18.0); Mean Corp Hgb Conc. 34.3 g/dL (33.0-37.0); Mean Corpuscular Volume 103.9 fL (80.0-94.0); Nucleated Red Blood Cells % 0 % (-); Platelet Count 202 10^3/uL (130-400); Red Cell Dist. Width 15.5 % (11.5-14.5)
[2025-01-16 08:18] LABS: ALT (SGPT) 36 U/L (0-50); AST (SGOT) 32 U/L (17-59); Albumin 4.0 g/dl (3.5-5.0); Alkaline Phosphatase 71 U/L (38-126); Blood Urea Nitrogen 29 mg/dl (9-20); Calcium 9.3 mg/dl (8.4-10.2); Carbon Dioxide 30 mmol/L (22-30); Chloride 104 mmol/L (98-107); Glucose 82 mg/dl (70-99); Potassium 4.5 mmol/L (3.5-5.1); Sodium 138 mmol/L (135-145); Total Protein 6.3 g/dl (6.3-8.2); eGFR > 60.00
== END ==
LOC: REG 06:21
PROVIDERS: ATTENDING PHYSICIAN Internal Medicine Hematology & Oncology; FAMILY PHYSICIAN Internal Medicine
DX: C79.51 Secondary malignant neoplasm of bone (principal); C90.00 Multiple myeloma not having achieved remission; Q78.2 Osteopetrosis
CPT/HCPCS: 36415; 80053; 85025

== ENCOUNTER → 2025-02-06 06:21 | Outpatient (REF) | payer MEDICARE, OTHER, SELFPAY ==
[2025-02-06 08:01] LABS: Hematocrit 33.3 % (39.0-52.0); Hemoglobin 11.5 g/dL (13.0-18.0); Mean Corp Hgb Conc. 34.5 g/dL (33.0-37.0); Mean Corpuscular Volume 104.4 fL (80.0-94.0); Platelet Count 151 10^3/uL (130-400); Red Cell Dist. Width 15.0 % (11.5-14.5)
[2025-02-06 08:12] LABS: ALT (SGPT) 29 U/L (0-50); AST (SGOT) 29 U/L (17-59); Albumin 4.1 g/dl (3.5-5.0); Alkaline Phosphatase 93 U/L (38-126); Blood Urea Nitrogen 20 mg/dl (9-20); Calcium 9.3 mg/dl (8.4-10.2); Carbon Dioxide 31 mmol/L (22-30); Chloride 105 mmol/L (98-107); Glucose 85 mg/dl (70-99); Potassium 4.0 mmol/L (3.5-5.1); Sodium 138 mmol/L (135-145); Total Protein 6.3 g/dl (6.3-8.2); eGFR > 60.00
[2025-02-06 10:29] LABS: Absolute Neutrophils -Man Diff 2.3 10^3/uL (1.4-6.5)
[2025-02-06 10:30] LABS: Platelets Checked Yes
[2025-02-06 10:31] LABS: Anisocytosis Slight; Hypochromasia Slight; Macrocytosis Slight; Normal RBC Morphology No; Ovalocytes Slight; Total Cells Counted 100
== END ==
LOC: REG 06:21
PROVIDERS: ATTENDING PHYSICIAN Internal Medicine Hematology & Oncology; FAMILY PHYSICIAN Internal Medicine
DX: C79.51 Secondary malignant neoplasm of bone (principal); C90.00 Multiple myeloma not having achieved remission; Q78.2 Osteopetrosis
CPT/HCPCS: 36415; 80053; 85025

== ENCOUNTER → 2025-02-18 16:42 | Outpatient (REF) | payer MEDICARE, OTHER, SELFPAY | LOC: RAD 16:42 | PROVIDERS: ATTENDING PHYSICIAN Internal Medicine; FAMILY PHYSICIAN Internal Medicine; REFERRING PHYSICIAN Internal Medicine Hematology & Oncology | DX: M89.8X1 Other specified disorders of bone, shoulder (principal) | CPT/HCPCS: 73000 ==

== ENCOUNTER → 2025-02-20 07:16 | Outpatient (REF) | payer MEDICARE, OTHER, SELFPAY ==
[2025-02-20 08:01] LABS: Hematocrit 34.6 % (39.0-52.0); Hemoglobin 11.5 g/dL (13.0-18.0); Mean Corp Hgb Conc. 33.2 g/dL (33.0-37.0); Mean Corpuscular Volume 106.8 fL (80.0-94.0); Nucleated Red Blood Cells % 0 % (-); Platelet Count 240 10^3/uL (130-400); Red Cell Dist. Width 14.2 % (11.5-14.5)
[2025-02-20 08:36] LABS: ALT (SGPT) 21 U/L (0-50); AST (SGOT) 22 U/L (17-59); Albumin 4.1 g/dl (3.5-5.0); Alkaline Phosphatase 86 U/L (38-126); Blood Urea Nitrogen 21 mg/dl (9-20); Calcium 9.1 mg/dl (8.4-10.2); Carbon Dioxide 30 mmol/L (22-30); Chloride 105 mmol/L (98-107); Glucose 70 mg/dl (70-99); Potassium 3.9 mmol/L (3.5-5.1); Sodium 140 mmol/L (135-145); Total Protein 6.6 g/dl (6.3-8.2); eGFR > 60.00
== END ==
LOC: REG 07:16
PROVIDERS: ATTENDING PHYSICIAN Internal Medicine Hematology & Oncology; FAMILY PHYSICIAN Internal Medicine
DX: C79.51 Secondary malignant neoplasm of bone (principal); C90.00 Multiple myeloma not having achieved remission; Q78.2 Osteopetrosis
CPT/HCPCS: 36415; 80053; 85025

== ENCOUNTER → 2025-03-01 07:10 | Outpatient (REF) | payer MEDICARE, OTHER, SELFPAY ==
[2025-03-01 08:03] LABS: ALT (SGPT) 21 U/L (0-50); AST (SGOT) 19 U/L (17-59); Albumin 4.1 g/dl (3.5-5.0); Alkaline Phosphatase 78 U/L (38-126); Blood Urea Nitrogen 19 mg/dl (9-20); Calcium 9.1 mg/dl (8.4-10.2); Carbon Dioxide 32 mmol/L (22-30); Chloride 105 mmol/L (98-107); Glucose 76 mg/dl (70-99); Potassium 4.0 mmol/L (3.5-5.1); Sodium 140 mmol/L (135-145); Total Protein 6.5 g/dl (6.3-8.2); eGFR > 60.00
[2025-03-01 08:36] LABS: Hematocrit 34.3 % (39.0-52.0); Hemoglobin 11.9 g/dL (13.0-18.0); Mean Corp Hgb Conc. 34.7 g/dL (33.0-37.0); Mean Corpuscular Volume 105.9 fL (80.0-94.0); Platelet Count 211 10^3/uL (130-400); Red Cell Dist. Width 13.2 % (11.5-14.5)
[2025-03-01 11:15] LABS: Absolute Neutrophils -Man Diff 2.6 10^3/uL (1.4-6.5)
[2025-03-01 11:16] LABS: Normal RBC Morphology Yes; Platelets Checked Yes; Total Cells Counted 100
== END ==
LOC: REG 07:10
PROVIDERS: ATTENDING PHYSICIAN Internal Medicine Hematology & Oncology; FAMILY PHYSICIAN Internal Medicine
DX: C79.51 Secondary malignant neoplasm of bone (principal); C90.00 Multiple myeloma not having achieved remission; Q78.2 Osteopetrosis
CPT/HCPCS: 36415; 80053; 85025

== ENCOUNTER → 2025-03-20 06:19 | Outpatient (REF) | payer MEDICARE, OTHER, SELFPAY ==
[2025-03-20 07:32] LABS: Hematocrit 35.1 % (39.0-52.0); Hemoglobin 11.9 g/dL (13.0-18.0); Mean Corp Hgb Conc. 33.9 g/dL (33.0-37.0); Mean Corpuscular Volume 102.9 fL (80.0-94.0); Platelet Count 241 10^3/uL (130-400); Red Cell Dist. Width 13.2 % (11.5-14.5)
[2025-03-20 07:48] LABS: ALT (SGPT) 23 U/L (0-50); AST (SGOT) 22 U/L (17-59); Albumin 4.1 g/dl (3.5-5.0); Alkaline Phosphatase 86 U/L (38-126); Blood Urea Nitrogen 18 mg/dl (9-20); Calcium 9.2 mg/dl (8.4-10.2); Carbon Dioxide 29 mmol/L (22-30); Chloride 106 mmol/L (98-107); Glucose 89 mg/dl (70-99); Potassium 4.2 mmol/L (3.5-5.1); Sodium 139 mmol/L (135-145); Total Protein 6.6 g/dl (6.3-8.2); eGFR > 60.00
[2025-03-20 08:59] LABS: Absolute Neutrophils -Man Diff 1.8 10^3/uL (1.4-6.5)
[2025-03-20 09:00] LABS: Normal RBC Morphology Yes; Platelets Checked Yes; Total Cells Counted 100
== END ==
LOC: REG 06:19
PROVIDERS: ATTENDING PHYSICIAN Internal Medicine Hematology & Oncology; FAMILY PHYSICIAN Internal Medicine
DX: C79.51 Secondary malignant neoplasm of bone (principal); C90.00 Multiple myeloma not having achieved remission; Q78.2 Osteopetrosis
CPT/HCPCS: 36415; 80053; 85025

== ENCOUNTER → 2025-04-03 06:28 | Outpatient (REF) | payer MEDICARE, OTHER, SELFPAY ==
[2025-04-03 08:02] LABS: ALT (SGPT) 27 U/L (0-50); AST (SGOT) 23 U/L (17-59); Albumin 4.0 g/dl (3.5-5.0); Alkaline Phosphatase 102 U/L (38-126); Blood Urea Nitrogen 26 mg/dl (9-20); Calcium 8.7 mg/dl (8.4-10.2); Carbon Dioxide 27 mmol/L (22-30); Chloride 108 mmol/L (98-107); Glucose 85 mg/dl (70-99); Potassium 4.0 mmol/L (3.5-5.1); Sodium 138 mmol/L (135-145); Total Protein 6.6 g/dl (6.3-8.2); eGFR > 60.00
[2025-04-03 08:10] LABS: Hematocrit 35.5 % (39.0-52.0); Hemoglobin 12.2 g/dL (13.0-18.0); Mean Corp Hgb Conc. 34.4 g/dL (33.0-37.0); Mean Corpuscular Volume 105.7 fL (80.0-94.0); Nucleated Red Blood Cells % 0 % (-); Platelet Count 182 10^3/uL (130-400); Red Cell Dist. Width 13.0 % (11.5-14.5)
== END ==
LOC: REG 06:28
PROVIDERS: ATTENDING PHYSICIAN Internal Medicine Hematology & Oncology; FAMILY PHYSICIAN Internal Medicine
DX: C79.51 Secondary malignant neoplasm of bone (principal); C90.00 Multiple myeloma not having achieved remission; Q78.2 Osteopetrosis
CPT/HCPCS: 36415; 80053; 85025

== ENCOUNTER → 2025-04-17 06:31 | Outpatient (REF) | payer MEDICARE, OTHER, SELFPAY ==
[2025-04-17 08:18] LABS: Hematocrit 35.8 % (39.0-52.0); Hemoglobin 12.0 g/dL (13.0-18.0); Mean Corp Hgb Conc. 33.5 g/dL (33.0-37.0); Mean Corpuscular Volume 104.7 fL (80.0-94.0); Nucleated Red Blood Cells % 0 % (-); Platelet Count 272 10^3/uL (130-400); Red Cell Dist. Width 13.1 % (11.5-14.5)
[2025-04-17 09:01] LABS: ALT (SGPT) 25 U/L (0-50); AST (SGOT) 24 U/L (17-59); Albumin 3.9 g/dl (3.5-5.0); Alkaline Phosphatase 97 U/L (38-126); Blood Urea Nitrogen 17 mg/dl (9-20); Calcium 8.6 mg/dl (8.4-10.2); Carbon Dioxide 28 mmol/L (22-30); Chloride 106 mmol/L (98-107); Glucose 89 mg/dl (70-99); Potassium 4.2 mmol/L (3.5-5.1); Sodium 141 mmol/L (135-145); Total Protein 6.4 g/dl (6.3-8.2); eGFR > 60.00
== END ==
LOC: REG 06:31
PROVIDERS: ATTENDING PHYSICIAN Internal Medicine Hematology & Oncology; FAMILY PHYSICIAN Internal Medicine
DX: C79.51 Secondary malignant neoplasm of bone (principal); C90.00 Multiple myeloma not having achieved remission; Q78.2 Osteopetrosis
CPT/HCPCS: 36415; 80053; 85025

== ENCOUNTER → 2025-05-01 06:37 | Outpatient (REF) | payer MEDICARE, OTHER, SELFPAY ==
[2025-05-01 07:40] LABS: Hematocrit 37.4 % (39.0-52.0); Hemoglobin 12.6 g/dL (13.0-18.0); Mean Corp Hgb Conc. 33.7 g/dL (33.0-37.0); Mean Corpuscular Volume 101.1 fL (80.0-94.0); Nucleated Red Blood Cells % 0 % (-); Platelet Count 189 10^3/uL (130-400); Red Cell Dist. Width 13.1 % (11.5-14.5)
[2025-05-01 07:52] LABS: ALT (SGPT) 18 U/L (0-50); AST (SGOT) 20 U/L (17-59); Albumin 4.1 g/dl (3.5-5.0); Alkaline Phosphatase 79 U/L (38-126); Blood Urea Nitrogen 21 mg/dl (9-20); Calcium 8.8 mg/dl (8.4-10.2); Carbon Dioxide 29 mmol/L (22-30); Chloride 107 mmol/L (98-107); Glucose 87 mg/dl (70-99); Potassium 4.1 mmol/L (3.5-5.1); Sodium 138 mmol/L (135-145); Total Protein 6.6 g/dl (6.3-8.2); eGFR > 60.00
== END ==
LOC: REG 06:37
PROVIDERS: ATTENDING PHYSICIAN Internal Medicine Hematology & Oncology; FAMILY PHYSICIAN Internal Medicine
DX: C79.51 Secondary malignant neoplasm of bone (principal); C90.00 Multiple myeloma not having achieved remission; Q78.2 Osteopetrosis
CPT/HCPCS: 36415; 80053; 85025

== ENCOUNTER → 2025-05-29 06:24 | Outpatient (REF) | payer MEDICARE, OTHER, SELFPAY ==
[2025-05-29 06:46] LABS: Hematocrit 34.4 % (39.0-52.0); Hemoglobin 11.6 g/dL (13.0-18.0); Mean Corp Hgb Conc. 33.7 g/dL (33.0-37.0); Mean Corpuscular Volume 98.6 fL (80.0-94.0); Nucleated Red Blood Cells % 0 % (-); Platelet Count 216 10^3/uL (130-400); Red Cell Dist. Width 13.5 % (11.5-14.5)
[2025-05-29 07:21] LABS: ALT (SGPT) 21 U/L (0-50); AST (SGOT) 20 U/L (17-59); Albumin 3.9 g/dl (3.5-5.0); Alkaline Phosphatase 117 U/L (38-126); Blood Urea Nitrogen 25 mg/dl (9-20); Calcium 8.8 mg/dl (8.4-10.2); Carbon Dioxide 28 mmol/L (22-30); Chloride 103 mmol/L (98-107); Glucose 94 mg/dl (70-99); Potassium 4.0 mmol/L (3.5-5.1); Sodium 138 mmol/L (135-145); Total Protein 6.6 g/dl (6.3-8.2); eGFR > 60.00
== END ==
LOC: REG 06:24
PROVIDERS: ATTENDING PHYSICIAN Internal Medicine Hematology & Oncology; FAMILY PHYSICIAN Internal Medicine
DX: C79.51 Secondary malignant neoplasm of bone (principal); C90.00 Multiple myeloma not having achieved remission; Q78.2 Osteopetrosis
CPT/HCPCS: 36415; 80053; 82784; 83521; 84155; 84165; 85025; 86334